=== PATIENT | female | born 1995 | race Caucasian/White ===

== ENCOUNTER 2017-01-01 14:28 | Emergency (ER) | payer BC, MEDICAID, OTHER ==
[2017-01-01 14:49] VITALS: BP 127/115
--- NOTE | 2017-01-01 15:08 | EDM.PDOC ---
ED HPI GENERAL MEDICAL PROBLEM - General Chief Complaint: ENT Problem Stated Complaint: EAR AND THROAT PAIN Time Seen by Provider: 01/01/17 14:57 Source of Information: Reports: Patient History Limitations: Reports: No Limitations - History of Present Illness INITIAL COMMENTS - FREE TEXT/NARRATIVE: Patient is a 21-year-old female who presents to the ED with left-sided ear pain , sinus congestion, runny nose, mild sore throat with postnasal drip. Patient states this started approximately 2 days ago. Pain to the ear has been a sharp throbbing sensation with waxing and waning in intensity. She has taken ibuprofen with some improvement. She has a history of strep throat and notes current symptoms are mild in nature. 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 She denies any fever, chills, chest pain, abdominal pain, nausea/vomiting, diarrhea, rash, or any additional complaints. Patient was instructed to come to the ED to obtain a doctor's notes since she was out sick yesterday and today. 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 Musculoskeletal History: Reports: 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) Other Musculoskeletal History: 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 - Past Surgical History HEENT Surgical History: Reports: Oral Surgery, 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) Social & Family History - Family History Family Medical History: Noncontributory - Tobacco Use Smoking Status *Q: Never Smoker Second Hand Smoke Exposure: No - Caffeine Use Caffeine Use: Reports: None - Alcohol Use Days Per Week of Alcohol Use: 0 - Recreational Drug Use Recreational Drug Use: No ED ROS GENERAL - Review of Systems Review Of Systems: ROS reveals no pertinent complaints other than HPI. ED EXAM, GENERAL - Physical Exam Exam: See Below Exam Limited By: No Limitations General Appearance: Alert, WD/WN, No Apparent Distress Eye Exam: Bilateral Eye: PERRL Ears: Normal External Exam, Normal Canal, Hearing Grossly Normal, Normal TMs Nose: Normal Inspection, Normal Mucosa, No Blood Throat/Mouth: Normal Inspection, Normal Oropharynx, Normal Voice, No Airway Compromise Head: Atraumatic, Normocephalic Neck: Normal Inspection, Supple, Non-Tender, Full Range of Motion. No: Lymphadenopathy (L), Lymphadenopathy (R) Respiratory/Chest: No Respiratory Distress, Lungs Clear, Normal Breath Sounds, No Accessory Muscle Use, Chest Non-Tender Cardiovascular: Normal Peripheral Pulses, Regular Rate, Rhythm, No Murmur Peripheral Pulses: 2+: Radial (R) Neurological: Alert, Oriented, CN II-XII Intact, Normal Cognition, No Motor/ Sensory Deficits Psychiatric: Normal Affect, Normal Mood Skin Exam: Warm, Dry, Intact, Normal Color, No Rash Course - Vital Signs Last Recorded V/S: Last Vital Signs Temp 98.1 F 01/01/17 14:47 Pulse 70 01/01/17 14:47 Resp 20 01/01/17 14:47 BP 127/115 H 01/01/17 14:47 Pulse Ox 98 01/01/17 14:47 - Re-Assessments/Exams Free Text/Narrative Re-Assessment/Exam: History and physical findings consistent for viral infection. We'll discharge patient home with instructions and a doctor's note. Departure - Departure Time of Disposition: 15:12 Disposition: Home, Self-Care 01 Condition: good Clinical Impression: Viral upper respiratory infection Instructions: Upper Respiratory Infection, Adult, [id number] Referrals: PCP,None [Primary Care Provider] - Forms: ED Department Discharge, Return to Work/School Form Additional Instructions: As discussed symptoms consistent for viral upper respiratory infection. Take tylenol and ibuprofen in alternating fashion for pain. Utilize flonase 1 spray to each nare every a.m. and claritan 1 tab 24ER everyday. Continue to push the fluids. Ensure adequate rest. See PCP as needed for reevaluation. Return to the E.D. for any new or worsening symptoms.
== END 2017-01-01 15:30 | disposition home or self-care (01) ==
LOC: JD.ED 14:28
DX: J06.9 Acute upper respiratory infection, unspecified (principal); B97.89 Other viral agents as the cause of diseases classified elsewhere; Z89.021 Acquired absence of right finger(s); Z91.010 Allergy to peanuts
CPT/HCPCS: 99282; 99283

== ENCOUNTER 2017-11-28 09:38 | Inpatient (IN) | payer MEDICAID ==
[2017-11-28] MEDS ORDERED: Sodium Chloride 0.9% 10 ML Syringe FLUSH PRN (10:02)
[2017-11-28] MEDS ORDERED: Nalbuphine 20 MG/ML 1 ML Syringe IVPUSH PRN (10:02)
[2017-11-28] MEDS ORDERED: Ampicillin 2 GM in Sodium Chloride 0.9% 100 ML IV ONE (10:02)
[2017-11-28] MEDS ORDERED: Ondansetron 4 MG/2 ML SDV IVPUSH PRN (10:02)
[2017-11-28] MEDS ORDERED: Oxytocin/Lactated Ringers 20 UNIT/1,000 ML BAG IV SCH (10:15)
[2017-11-28] MEDS ORDERED: Lactated Ringers 1,000 ML IV SCH (10:15)
[2017-11-28] MEDS ORDERED: diphenhydrAMINE 50 MG/ML SDV IVPUSH PRN (11:05)
[2017-11-28] MEDS ORDERED: ePHEDrine 50 MG/ML SDV IVPUSH PRN (11:05)
[2017-11-28] MEDS ORDERED: fentaNYL 100 MCG/2 ML SDV EPIDUR PRN (11:05)
[2017-11-28] MEDS ORDERED: Bupivacaine/fentaNYL/NS 100 ML Bag EPIDUR SCH (11:15)
--- NOTE | 2017-11-28 11:22 | PCM.LDHP ---
L&D History of Present Illness - General Date of Service: 11/28/17 Admit Problem/Dx: Patient Status Order with Admit Dx/Problem 11/28/17 10:02 Patient Status [ADT] Routine Admission Diagnosis/Problem Admission Diagnosis/Problem Normal labor Source of Information: Patient History Limitations: Reports: No Limitations - History of Present Illness Introduction:: 22-year-old 002 ÁNGEL 12/15/17 estimated gestational age 37 weeks 4 days presented to labor and delivery 5-6 cm dilated contractions every 3 minutes and moderate to strong bulging bag of barboza vertex presentation GBS positive in urine. Amniotomy performed at 11:15 on Monday11/28/17 clear fluid cervix at present time approximate 7-8 cm dilated. Cephalic presentation 0/-1 station. Category 1 heart rates before and after amniotomy. A positive, antibody screen negative, on 05/08/17 hemoglobin hematocrit 12.8/37.8. Platelets 190, 000. Rubella immune. Serology nonreactive. Group B strep grown only urine showed 7800 colony-forming units hepatitis B surface antigen negative, HIV negative, GC chlamydia probe negative. On 10/09/17 hemoglobin 11.0 hematocrit 33.7 platelets 199,00, 1 hour OB glucose screen 1:15 within normal limits. Plan delivery. Location, : Reports: Abdomen, Lower back Quality: Reports: Ache, Dull, Pressure Severity: Moderate Pain Score: 7 Improves with: Reports: None Worsens with: Reports: None Associated Symptoms: Reports: N - Related Data Allergies/Adverse Reactions: Allergies Allergy/AdvReac Type Severity Reaction Status Date / Time peanut Allergy Stomach Verified 11/28/17 10:01 Ache Home Medications: Home Meds . 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 - Past Surgical History HEENT Surgical History: Reports: Oral Surgery, 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) Social & Family History - Family History Family Medical History: Noncontributory - Tobacco Use Smoking Status *Q: Never Smoker Second Hand Smoke Exposure: No - Caffeine Use Caffeine Use: Reports: None - Recreational Drug Use Recreational Drug Use: No H&P Review of Systems - Review of Systems: Review Of Systems: See Below General: Reports: No Symptoms HEENT: Reports: No Symptoms Pulmonary: Reports: No Symptoms Cardiovascular: Reports: No Symptoms Gastrointestinal: Reports: No Symptoms Genitourinary: Reports: No Symptoms Musculoskeletal: Reports: No Symptoms Skin: Reports: No Symptoms Psychiatric: Reports: No Symptoms Neurological: Reports: No Symptoms Hematologic/Lymphatic: Reports: No Symptoms Immunologic: Reports: No Symptoms L&D Exam - Exam Exam: See Below - Vital Signs Vital Signs: Last Vital Signs Temp 98.5 F 11/28/17 10:02 Pulse 67 11/28/17 11:01 Resp 16 11/28/17 10:02 BP 97/65 11/28/17 10:02 Pulse Ox Weight: 169 lb - OB Specific Fundal Height In cm: 37 Contraction Duration (sec): 60 Contraction Frequency (min): 3 Contraction Intensity: Moderate to Strong Movement: Active Heart Tones: Present Heart Tones per Min: 140 Heart Rate (FHR) Variability: Moderate (6-25 bmp) Presentation: Vertex - Albrecht Score Albrecht Score Cervix Position: Anterior Albrecht Score Consistency: Soft Albrecht Score Effacement: >80% Albrecht Score Dilation: > 5 cm Albrecht Score Infant's Station: -1 ,0 Albrecht Score Total: 12 - Exam General: Alert, Oriented HEENT: Conjunctiva Clear, Mucosa Moist & [place], PERRLA Neck: Supple, Trachea Midline Lungs: Clear to Auscultation, Normal Respiratory Effort Cardiovascular: Regular Rate, Regular Rhythm GI/Abdominal Exam: Normal Bowel Sounds, Soft, Non-Tender Genitourinary: Normal external exam, Normal bimanual exam, Normal speculum exam Extremities: Normal Inspection, Normal Range of Motion, Non-Tender, No Pedal Edema, Normal Capillary Refill Skin: Warm, Dry, Intact Neurological: Cranial Nerves Intact, Reflexes Equal Bilateral DTR: 2+: Patella (L), Patella (R) Psychiatric: Alert, Normal Affect, Normal Mood - Patient Data Lab Results Last 24 hrs: Laboratory Results - last 24 hr 11/28/17 Range/Units 11:01 WBC 10.27 H (3.98-10.04) K/mm3 RBC 3.90 L (3.98-5.22) M/mm3 Hgb 11.5 (11.2-15.7) gm/L Hct 35.1 (34.1-44.9) % MCV 90.0 (79.4-94.8) fl MCH 29.5 (25.6-32.2) pg MCHC 32.8 (32.2-35.5) g/dl RDW Std Deviation 46.3 (36.4-46.3) fL Plt Count 188 (182-369) K/mm3 MPV 11.4 (9.4-12.3) fl Neut % (Auto) 79.0 H (34.0-71.1) % Lymph % (Auto) 12.9 L (19.3-51.7) % [place] % (Auto) 7.1 (4.7-12.5) % Eos % (Auto) 0.7 (0.7-5.8) Baso % (Auto) 0.1 (0.1-1.2) % Neut # (Auto) 8.12 H (1.56-6.13) K/mm3 Lymph # (Auto) 1.32 (1.18-3.74) K/mm3 [place] # (Auto) 0.73 H (0.24-0.36) K/mm3 Eos # (Auto) 0.07 (0.04-0.36) K/mm3 Baso # (Auto) 0.01 (0.01-0.08) K/mm3 Result Diagrams: 11/28/17 11:01 - Problem List (1) 37 weeks gestation of SNOMED Code(s): 41627729 ICD Code: Z3A.37 - 37 WEEKS GESTATION OF Status: Acute Current Visit: Yes (2) GBS bacteriuria SNOMED Code(s): 96550415 ICD Code: R82.71 - BACTERIURIA Status: Acute Current Visit: Yes Problem List Initiated/Reviewed/Updated: No Orders Last 24hrs: Active Orders 24 hr Category Date Time Status Patient Status [ADT] Routine ADT 11/28/17 10:02 Active Activity as Tolerated [RC] PFP Care 11/28/17 10:02 Active Communication Order [RC] ASDIRECTED Care 11/28/17 10:02 Active Communication Order [RC] ASDIRECTED Care 11/28/17 11:05 Active Cooling Warming Measures [RC] ASDIRECTED Care 11/28/17 11:05 Active Heart Tones [RC] ASDIRECTED Care 11/28/17 10:02 Active Notify Provider [RC] ASDIRECTED Care 11/28/17 11:05 Active Notify Provider [RC] PFP Care 11/28/17 10:02 Active Notify Provider [RC] PRN Care 11/28/17 10:02 Active Oxygen Therapy [RC] ASDIRECTED Care 11/28/17 11:05 Active Peripheral IV Care [RC] . DIRECTED Care 11/28/17 10:02 Active Pulse Oximetry [RC] ASDIRECTED Care 11/28/17 11:05 Active Verify Patient Consent Obtain [RC] ASDIRECTED Care 11/28/17 11:05 Active Vital Signs [RC] PER UNIT ROUTINE Care 11/28/17 10:02 Active Vital Signs [RC] Q1H Care 11/28/17 11:05 Active Regular Diet [DIET] Diet 11/28/17 Lunch Active Ampicillin 1 gm Med 11/28/17 14:00 Active Sodium Chloride 0.9% [Normal Saline] 100 ml IV Q4H Bupivacaine/fentaNYL/NS [fentaNYL/Bupivacaine/NS 2 MCG- Med 11/28/17 11:15 Active 0.125% 100 ML] 100 ml EPIDUR ASDIRECTED Lactated Ringers [Ringers, Lactated] 1,000 ml Med 11/28/17 10:15 Active IV ASDIRECTED Lidocaine 1% [Xylocaine 1%] Med 11/28/17 13:00 Once 50 ml INJECT ONETIME ONE Nalbuphine [Nubain] Med 11/28/17 10:02 Active 10 mg IVPUSH Q2H PRN Ondansetron [Zofran] Med 11/28/17 10:02 Active 4 mg IVPUSH Q4H PRN Oxytocin/Lactated Ringers [Pitocin in LR 20 Units/1,000 Med 11/28/17 10:15 Active ML] 20 unit in 1,000 ml IV ASDIRECTED Sodium Chloride 0.9% [Saline Flush] Med 11/28/17 10:02 Active 10 ml FLUSH ASDIRECTED PRN diphenhydrAMINE [Benadryl] Med 11/28/17 11:05 Active 25 mg IVPUSH Q6H PRN ePHEDrine [ePHEDrine Sulfate] Med 11/28/17 11:05 Active 5 mg IVPUSH ASDIRECTED PRN fentaNYL [Sublimaze] Med 11/28/17 11:05 Active 100 mcg EPIDUR Q3H PRN Electronic Heart Tones Ext w TOCO [WOMSER] Oth 11/28/17 10:02 Ordered Routine Electronic Heart Tones Internal [WOMSER] Per Unit Oth 11/28/17 10:02 Ordered Routine Peripheral IV Insertion Adult [OM.PC] Routine Oth 11/28/17 10:02 Ordered Resuscitation Status Routine Resus Stat 11/28/17 10:02 Ordered Medication Orders Diphenhydramine HCl (Benadryl) 25 mg IVPUSH Q6H PRN PRN Reason: Itching Ephedrine Sulfate (Ephedrine Sulfate) 5 mg IVPUSH ASDIRECTED PRN PRN Reason: HYPOTENTSION Fentanyl (Sublimaze) 100 mcg EPIDUR Q3H PRN PRN Reason: PAIN Fentanyl/Bupivacaine HCl (Fentanyl/Bupivacaine/Ns 2 Mcg-0.125% 100 Ml) 100 ml EPIDUR ASDIRECTED CHANCE Ampicillin Sodium 1 gm/ Sodium (Chloride) 100 mls @ 200 mls/hr IV Q4H CHANCE Lactated Ringer's (Ringers, Lactated) 1,000 mls @ 100 mls/hr IV ASDIRECTED [facility]NACE Last Admin: 11/28/17 10:25 Dose: 100 mls/hr Oxytocin/Lactated Ringer's (Pitocin In Lr 20 Units/1,000 Ml) 20 unit in 1,000 mls @ 500 mls/hr IV ASDIRECTED [facility]; Protocol Lidocaine HCl (Xylocaine 1%) 50 ml INJECT ONETIME ONE Stop: 11/28/17 13:01 Nalbuphine HCl (Nubain) 10 mg IVPUSH Q2H PRN PRN Reason: Pain (moderate 4-6) Ondansetron HCl (Zofran) 4 mg IVPUSH Q4H PRN PRN Reason: Nausea/Vomiting Sodium Chloride (Saline Flush) 10 ml FLUSH ASDIRECTED PRN PRN Reason: Keep Vein Open Assessment/Plan Comment:: Plan delivery
--- NOTE | 2017-11-28 12:17 | PCM.DEL ---
L & D Note - General Info Date of Service: 11/28/17 Mother's Due Date: 12/15/17 - Delivery Note Labor: Spontaneous, Augmented by ARM Delivery Outcome: Livebirth (Male liveborn at 1203 hrs. on Monday11/28/17 30// 70 grams 6 pounds 15.8 ounces male liveborn under no anesthesia 100 over no episiotomy or laceration MEL was nuchal cord times one easily reduced over the head. Apgars 8/9) Delivery Method: Spontaneous Vaginal Delivery-Single Delivery Mode: Spontaneous Presentation: Left Occiput Anterior (MEL) Nuchal Cord: Present (Times one easily reduced over the head) Prep: Povidone-Iodine (Betadine Anesthesia Type: None Episiotomy Type: None Laceration: None Placenta: Intact, Spontaneous (Placenta delivered at 1206 hrs. on Monday end packed slightly off center insertion of the cord three-vessel cord membranes intact no missing cotyledons patient had signed release and placenta given to patient and to take home.) Cord: 3 Vessels Estimated Blood Loss: 250 Resuscitation Needed: No [place]: Suctioned, Bulb Syringe, Stimulated, Warmed, [place] Used, Warmer Used Provider: Gato Kwong Score 1 min: 8 - General Info Date of Service: 11/28/17 Functional Status: Reports: Pain Controlled - Review of Systems General: Reports: No Symptoms HEENT: Reports: No Symptoms Pulmonary: Reports: No Symptoms Cardiovascular: Reports: No Symptoms Gastrointestinal: Reports: No Symptoms Genitourinary: Reports: No Symptoms Musculoskeletal: Reports: No Symptoms Skin: Reports: No Symptoms Neurological: Reports: No Symptoms Psychiatric: Reports: No Symptoms - Patient Data Vitals - Most Recent: Last Vital Signs Temp 98.5 F 11/28/17 10:02 Pulse 67 11/28/17 11:01 Resp 16 11/28/17 10:02 BP 97/65 11/28/17 10:02 Pulse Ox Weight - Most Recent: 169 lb Lab Results Last 24 Hours: Laboratory Results - last 24 hr 11/28/17 Range/Units 11:01 WBC 10.27 H (3.98-10.04) K/mm3 RBC 3.90 L (3.98-5.22) M/mm3 Hgb 11.5 (11.2-15.7) gm/L Hct 35.1 (34.1-44.9) % MCV 90.0 (79.4-94.8) fl MCH 29.5 (25.6-32.2) pg MCHC 32.8 (32.2-35.5) g/dl RDW Std Deviation 46.3 (36.4-46.3) fL Plt Count 188 (182-369) K/mm3 MPV 11.4 (9.4-12.3) fl Neut % (Auto) 79.0 H (34.0-71.1) % Lymph % (Auto) 12.9 L (19.3-51.7) % [place] % (Auto) 7.1 (4.7-12.5) % Eos % (Auto) 0.7 (0.7-5.8) Baso % (Auto) 0.1 (0.1-1.2) % Neut # (Auto) 8.12 H (1.56-6.13) K/mm3 Lymph # (Auto) 1.32 (1.18-3.74) K/mm3 [place] # (Auto) 0.73 H (0.24-0.36) K/mm3 Eos # (Auto) 0.07 (0.04-0.36) K/mm3 Baso # (Auto) 0.01 (0.01-0.08) K/mm3 Med Orders - Current: Current Medications Diphenhydramine HCl (Benadryl) 25 mg IVPUSH Q6H PRN PRN Reason: Itching Ephedrine Sulfate (Ephedrine Sulfate) 5 mg IVPUSH ASDIRECTED PRN PRN Reason: HYPOTENTSION Fentanyl (Sublimaze) 100 mcg EPIDUR Q3H PRN PRN Reason: PAIN Fentanyl/Bupivacaine HCl (Fentanyl/Bupivacaine/Ns 2 Mcg-0.125% 100 Ml) 100 ml EPIDUR ASDIRECTED CHANCE Ampicillin Sodium 1 gm/ Sodium (Chloride) 100 mls @ 200 mls/hr IV Q4H CHANCE Lactated Ringer's (Ringers, Lactated) 1,000 mls @ 100 mls/hr IV ASDIRECTED CHANCE Last Admin: 11/28/17 10:25 Dose: 100 mls/hr Oxytocin/Lactated Ringer's (Pitocin In Lr 20 Units/1,000 Ml) 20 unit in 1,000 mls @ 500 mls/hr IV ASDIRECTED [facility]ANCE; Protocol Lidocaine HCl (Xylocaine 1%) 50 ml INJECT ONETIME ONE Stop: 11/28/17 13:01 Nalbuphine HCl (Nubain) 10 mg IVPUSH Q2H PRN PRN Reason: Pain (moderate 4-6) Ondansetron HCl (Zofran) 4 mg IVPUSH Q4H PRN PRN Reason: Nausea/Vomiting Sodium Chloride (Saline Flush) 10 ml FLUSH ASDIRECTED PRN PRN Reason: Keep Vein Open Discontinued Medications Ampicillin Sodium 2 gm/ Sodium (Chloride) 100 mls @ 200 mls/hr IV ONETIME ONE Stop: 11/28/17 10:31 Last Admin: 11/28/17 10:30 Dose: 200 mls/hr - Problem List & Annotations (1) 37 weeks gestation of SNOMED Code(s): 04441408 Code(s): Z3A.37 - 37 WEEKS GESTATION OF Status: Acute Current Visit: Yes (2) GBS bacteriuria SNOMED Code(s): 94805915 Code(s): R82.71 - BACTERIURIA Status: Acute Current Visit: Yes (3) Labor and delivery complicated by cord around neck without compression SNOMED Code(s): 673765771, 293712625 Code(s): O69.81X0 - LABOR AND DEL COMP BY CORD AROUND NECK, W/O COMPRSN, UNSP Status: Acute Current Visit: Yes (4) Encounter for full-term uncomplicated delivery SNOMED Code(s): 13404083, 823893104 Code(s): O80 - ENCOUNTER FOR FULL-TERM UNCOMPLICATED DELIVERY Status: Acute Current Visit: Yes - Problem List Review Problem List Initiated/Reviewed/Updated: No - My Orders Last 24 Hours: My Active Orders 11/28/17 10:02 Patient Status [ADT] Routine Activity as Tolerated [RC] PFP Communication Order [RC] ASDIRECTED Heart Tones [RC] ASDIRECTED Notify Provider [RC] PFP Notify Provider [RC] PRN Peripheral IV Care [RC] . DIRECTED Vital Signs [RC] PER UNIT ROUTINE Nalbuphine [Nubain] 10 mg IVPUSH Q2H PRN Ondansetron [Zofran] 4 mg IVPUSH Q4H PRN Sodium Chloride 0.9% [Saline Flush] 10 ml FLUSH ASDIRECTED PRN Electronic Heart Tones Ext w TOCO [WOMSER] Routine Electronic Heart Tones Internal [WOMSER] Per Unit Routine Peripheral IV Insertion Adult [OM.PC] Routine Resuscitation Status Routine 11/28/17 10:15 Lactated Ringers [Ringers, Lactated] 1,000 ml IV ASDIRECTED Oxytocin/Lactated Ringers [Pitocin in LR 20 Units/1,000 ML] 20 unit in 1,000 ml IV ASDIRECTED 11/28/17 13:00 Lidocaine 1% [Xylocaine 1%] 50 ml INJECT ONETIME ONE 11/28/17 14:00 Ampicillin 1 gm Sodium Chloride 0.9% [Normal Saline] 100 ml IV Q4H 11/28/17 Lunch Regular Diet [DIET] - Plan Plan:: Plan delivery
[2017-11-28] MEDS ORDERED: Lidocaine 1% 50 ML MDV INJECT ONE (13:00)
[2017-11-28] MEDS ORDERED: Witch Hazel Medicated Pads 100/Jar TOP PRN (13:10)
[2017-11-28] MEDS ORDERED: Acetaminophen 325 MG Tab PO PRN (13:10)
[2017-11-28] MEDS ORDERED: Lanolin 100% Cream 7 GM Tube TOP PRN (13:10)
[2017-11-28] MEDS ORDERED: Benzocaine/Menthol 20%-0.5% Spray 56 GM Canister TOP PRN (13:10)
[2017-11-28] MEDS ORDERED: Ampicillin 1 GM in Sodium Chloride 0.9% 100 ML IV SCH (14:00)
[2017-11-28] MEDS ORDERED: Oxytocin/Lactated Ringers 10 UNIT/1,000 ML BAG IV SCH (14:30)
[2017-11-29] MEDS: Ibuprofen 600 MG Tab PO PRN (00:28)
[2017-11-29] MEDS: Prenatal Multivitamin with Calcium/Folic Acid/Iron Tab PO SCH ×2 (02:04→22:28)
--- NOTE | 2017-11-29 08:00 | PCM.SN ---
- Free Text/Narrative Note: exam Afebrile, chest clear, uterus at umbilicus -1. No heavy vaginal bleeding. No leg cramping.
[2017-11-30] MEDS: Ibuprofen 600 MG Tab PO PRN (03:38)
[2017-11-30 04:04] VITALS: BP 115/72
--- NOTE | 2017-11-30 08:06 | PCM.DCSUM1 ---
Discharge Summary - Hospital Course Free Text/Narrative:: [facility] LIVE L/D Delivery Note Patient Name: MIAN ROY Date of : 89 Patient Status: Inpatient Attending Provider: Gato Kwong Date: 11/28/17 12:12 Initialization Date: 11/28/17 12:12 L & D Note - General Info Date of Service: 11/28/17 Mother's Due Date: 12/15/17 - Delivery Note Labor: Spontaneous, Augmented by ARM Delivery Outcome: Livebirth (Male liveborn at 1203 hrs. on Monday11/28/17 grams 6 pounds 15.8 ounces male liveborn under no anesthesia 100 over no episiotomy or laceration MEL was nuchal cord times one easily reduced over the head. Apgars 8/9) Infant Delivery Method: Spontaneous Vaginal Delivery-Single Delivery Mode: Spontaneous Presentation: Left Occiput Anterior (MEL) Nuchal Cord: Present (Times one easily reduced over the head) Prep: Povidone-Iodine (Betadine Anesthesia Type: None Episiotomy Type: None Laceration: None Placenta: Intact, Spontaneous (Placenta delivered at 1206 hrs. on Monday end packed slightly off center insertion of the cord three-vessel cord membranes intact no missing cotyledons patient had signed release and placenta given to patient and to take home.) Cord: 3 Vessels Estimated Blood Loss: 250 Resuscitation Needed: No : Suctioned, Bulb Syringe, Stimulated, Warmed, [place] Used, Warmer Used Provider: Gato Kwong Score 1 min: 8 - General Info Date of Service: 11/28/17 Functional Status: Reports: Pain Controlled - Review of Systems General: Reports: No Symptoms HEENT: Reports: No Symptoms Pulmonary: Reports: No Symptoms Cardiovascular: Reports: No Symptoms Gastrointestinal: Reports: No Symptoms Genitourinary: Reports: No Symptoms Musculoskeletal: Reports: No Symptoms Skin: Reports: No Symptoms Neurological: Reports: No Symptoms Psychiatric: Reports: No Symptoms - Patient Data Vitals - Most Recent: Last Vital Signs Temp 98.5 F 11/28/17 10:02 Pulse 67 05/08/18 11:01 Resp 16 11/28/17 10:02 BP 97/65 11/28/17 10:02 Pulse Ox Weight - Most Recent: 169 lb Lab Results Last 24 Hours: Laboratory Results - last 24 hr 11/28/17 Range/Units 11:01 WBC 10.27 H (3.98-10.04) K/mm3 RBC 3.90 L (3.98-5.22) M/mm3 Hgb 11.5 (11.2-15.7) gm/L Hct 35.1 (34.1-44.9) % MCV 90.0 (79.4-94.8) fl MCH 29.5 (25.6-32.2) pg MCHC 32.8 (32.2-35.5) g/dl RDW Std Deviation 46.3 (36.4-46.3) fL Plt Count 188 (182-369) K/mm3 MPV 11.4 (9.4-12.3) fl Neut % (Auto) 79.0 H (34.0-71.1) % Lymph % (Auto) 12.9 L (19.3-51.7) % [place] % (Auto) 7.1 (4.7-12.5) % Eos % (Auto) 0.7 (0.7-5.8) Baso % (Auto) 0.1 (0.1-1.2) % Neut # (Auto) 8.12 H (1.56-6.13) K/mm3 Lymph # (Auto) 1.32 (1.18-3.74) K/mm3 [place] # (Auto) 0.73 H (0.24-0.36) K/mm3 Eos # (Auto) 0.07 (0.04-0.36) K/mm3 Baso # (Auto) 0.01 (0.01-0.08) K/mm3 Med Orders - Current: Current Medications Diphenhydramine HCl (Benadryl) 25 mg IVPUSH Q6H PRN PRN Reason: Itching Ephedrine Sulfate (Ephedrine Sulfate) 5 mg IVPUSH ASDIRECTED PRN PRN Reason: HYPOTENTSION Fentanyl (Sublimaze) 100 mcg EPIDUR Q3H PRN PRN Reason: PAIN Fentanyl/Bupivacaine HCl (Fentanyl/Bupivacaine/Ns 2 Mcg-0.125% 100 Ml) 100 ml EPIDUR ASDIRECTED [facility] Ampicillin Sodium 1 gm/ Sodium (Chloride) 100 mls @ 200 mls/hr IV Q4H [facility] Lactated Ringer's (Ringers, Lactated) 1,000 mls @ 100 mls/hr IV ASDIRECTED CHANCE Last Admin: 11/28/17 10:25 Dose: 100 mls/hr Oxytocin/Lactated Ringer's (Pitocin In Lr 20 Units/1,000 Ml) 20 unit in 1,000 mls @ 500 mls/hr IV ASDIRECTED [facility]; Protocol Lidocaine HCl (Xylocaine 1%) 50 ml INJECT ONETIME ONE Stop: 11/28/17 13:01 Nalbuphine HCl (Nubain) 10 mg IVPUSH Q2H PRN PRN Reason: Pain (moderate 4-6) Ondansetron HCl (Zofran) 4 mg IVPUSH Q4H PRN PRN Reason: Nausea/Vomiting Sodium Chloride (Saline Flush) 10 ml FLUSH ASDIRECTED PRN PRN Reason: Keep Vein Open Discontinued Medications Ampicillin Sodium 2 gm/ Sodium (Chloride) 100 mls @ 200 mls/hr IV ONETIME ONE Stop: 11/28/17 10:31 Last Admin: 11/28/17 10:30 Dose: 200 mls/hr - Problem List & Annotations (1) 37 weeks gestation of SNOMED Code(s): 02937816 Code(s): Z3A.37 - 37 WEEKS GESTATION OF Status: Acute Current Visit: Yes (2) GBS bacteriuria SNOMED Code(s): 75125775 Code(s): R82.71 - BACTERIURIA Status: Acute Current Visit: Yes (3) Labor and delivery complicated by cord around neck without compression SNOMED Code(s): 421744046, 196387823 Code(s): O69.81X0 - LABOR AND DEL COMP BY CORD AROUND NECK, W/O COMPRSN, UNSP Status: Acute Current Visit: Yes (4) Encounter for full-term uncomplicated delivery SNOMED Code(s): 12249049, 046425038 Code(s): O80 - ENCOUNTER FOR FULL-TERM UNCOMPLICATED DELIVERY Status: Acute Current Visit: Yes - Problem List Review Problem List Initiated/Reviewed/Updated: No - My Orders Last 24 Hours: My Active Orders 11/28/17 10:02 Patient Status [ADT] Routine Activity as Tolerated [RC] PFP Communication Order [RC] ASDIRECTED Heart Tones [RC] ASDIRECTED Notify Provider [RC] PFP Notify Provider [RC] PRN Peripheral IV Care [RC] . DIRECTED Vital Signs [RC] PER UNIT ROUTINE Nalbuphine [Nubain] 10 mg IVPUSH Q2H PRN Ondansetron [Zofran] 4 mg IVPUSH Q4H PRN Sodium Chloride 0.9% [Saline Flush] 10 ml FLUSH ASDIRECTED PRN Electronic Heart Tones Ext w TOCO [WOMSER] Routine Electronic Heart Tones Internal [WOMSER] Per Unit Routine Peripheral IV Insertion Adult [OM.PC] Routine Resuscitation Status Routine 11/28/17 10:15 Lactated Ringers [Ringers, Lactated] 1,000 ml IV ASDIRECTED Oxytocin/Lactated Ringers [Pitocin in LR 20 Units/1,000 ML] 20 unit in 1,000 ml IV ASDIRECTED 11/28/17 13:00 Lidocaine 1% [Xylocaine 1%] 50 ml INJECT ONETIME ONE 11/28/17 14:00 Ampicillin 1 gm Sodium Chloride 0.9% [Normal Saline] 100 ml IV Q4H 11/28/17 Lunch Regular Diet [DIET] - Plan Plan:: Plan delivery HPI Initial Comments: [facility] LIVE L/D Delivery Note Patient Name: MIAN ROY Date of : 89 Patient Status: Inpatient Attending Provider: Gato Kwong Date: 11/28/17 12:12 Initialization Date: 11/28/17 12:12 L & D Note - General Info Date of Service: 11/28/17 Mother's Due Date: 12/15/17 - Delivery Note Labor: Spontaneous, Augmented by ARM Delivery Outcome: Livebirth (Male liveborn at 1203 hrs. on Monday11/28/17 30/1/ 70 grams 6 pounds 15.8 ounces male liveborn under no anesthesia 100 over no episiotomy or laceration MEL was nuchal cord times one easily reduced over the head. Apgars 8/9) Delivery Method: Spontaneous Vaginal Delivery-Single Delivery Mode: Spontaneous Presentation: Left Occiput Anterior (MEL) Nuchal Cord: Present (Times one easily reduced over the head) Prep: Povidone-Iodine (Betadine Anesthesia Type: None Episiotomy Type: None Laceration: None Placenta: Intact, Spontaneous (Placenta delivered at 1206 hrs. on Monday end packed slightly off center insertion of the cord three-vessel cord membranes intact no missing cotyledons patient had signed release and placenta given to patient and to take home.) Cord: 3 Vessels Estimated Blood Loss: 250 Resuscitation Needed: No [place]: Suctioned, Bulb Syringe, Stimulated, Warmed, [place] Used, Warmer Used Provider: Gato Kwong Score 1 min: 8 - General Info Date of Service: 11/28/17 Functional Status: Reports: Pain Controlled - Review of Systems General: Reports: No Symptoms HEENT: Reports: No Symptoms Pulmonary: Reports: No Symptoms Cardiovascular: Reports: No Symptoms Gastrointestinal: Reports: No Symptoms Genitourinary: Reports: No Symptoms Musculoskeletal: Reports: No Symptoms Skin: Reports: No Symptoms Neurological: Reports: No Symptoms Psychiatric: Reports: No Symptoms - Patient Data Vitals - Most Recent: Last Vital Signs Temp 98.5 F 11/28/17 10:02 Pulse 67 11/28/17 11:01 Resp 16 11/28/17 10:02 BP 97/65 11/28/17 10:02 Pulse Ox Weight - Most Recent: 169 lb Lab Results Last 24 Hours: Laboratory Results - last 24 hr 11/28/17 Range/Units 11:01 WBC 10.27 H (3.98-10.04) K/mm3 RBC 3.90 L (3.98-5.22) M/mm3 Hgb 11.5 (11.2-15.7) gm/L Hct 35.1 (34.1-44.9) % MCV 90.0 (79.4-94.8) fl MCH 29.5 (25.6-32.2) pg MCHC 32.8 (32.2-35.5) g/dl RDW Std Deviation 46.3 (36.4-46.3) fL Plt Count 188 (182-369) K/mm3 MPV 11.4 (9.4-12.3) fl Neut % (Auto) 79.0 H (34.0-71.1) % Lymph % (Auto) 12.9 L (19.3-51.7) % [place] % (Auto) 7.1 (4.7-12.5) % Eos % (Auto) 0.7 (0.7-5.8) Baso % (Auto) 0.1 (0.1-1.2) % Neut # (Auto) 8.12 H (1.56-6.13) K/mm3 Lymph # (Auto) 1.32 (1.18-3.74) K/mm3 [place] # (Auto) 0.73 H (0.24-0.36) K/mm3 Eos # (Auto) 0.07 (0.04-0.36) K/mm3 Baso # (Auto) 0.01 (0.01-0.08) K/mm3 Med Orders - Current: Current Medications Diphenhydramine HCl (Benadryl) 25 mg IVPUSH Q6H PRN PRN Reason: Itching Ephedrine Sulfate (Ephedrine Sulfate) 5 mg IVPUSH ASDIRECTED PRN PRN Reason: HYPOTENTSION Fentanyl (Sublimaze) 100 mcg EPIDUR Q3H PRN PRN Reason: PAIN Fentanyl/Bupivacaine HCl (Fentanyl/Bupivacaine/Ns 2 Mcg-0.125% 100 Ml) 100 ml EPIDUR ASDIRECTED [facility] Ampicillin Sodium 1 gm/ Sodium (Chloride) 100 mls @ 200 mls/hr IV Q4H [facility] Lactated Ringer's (Ringers, Lactated) 1,000 mls @ 100 mls/hr IV ASDIRECTED [facility] Last Admin: 11/28/17 10:25 Dose: 100 mls/hr Oxytocin/Lactated Ringer's (Pitocin In Lr 20 Units/1,000 Ml) 20 unit in 1,000 mls @ 500 mls/hr IV ASDIRECTED [facility]; Protocol Lidocaine HCl (Xylocaine 1%) 50 ml INJECT ONETIME ONE Stop: 11/28/17 13:01 Nalbuphine HCl (Nubain) 10 mg IVPUSH Q2H PRN PRN Reason: Pain (moderate 4-6) Ondansetron HCl (Zofran) 4 mg IVPUSH Q4H PRN PRN Reason: Nausea/Vomiting Sodium Chloride (Saline Flush) 10 ml FLUSH ASDIRECTED PRN PRN Reason: Keep Vein Open Discontinued Medications Ampicillin Sodium 2 gm/ Sodium (Chloride) 100 mls @ 200 mls/hr IV ONETIME ONE Stop: 11/28/17 10:31 Last Admin: 11/28/17 10:30 Dose: 200 mls/hr - Problem List & Annotations (1) 37 weeks gestation of SNOMED Code(s): 48380326 Code(s): Z3A.37 - 37 WEEKS GESTATION OF Status: Acute Current Visit: Yes (2) GBS bacteriuria SNOMED Code(s): 22935127 Code(s): R82.71 - BACTERIURIA Status: Acute Current Visit: Yes (3) Labor and delivery complicated by cord around neck without compression SNOMED Code(s): 476320553, 224894164 Code(s): O69.81X0 - LABOR AND DEL COMP BY CORD AROUND NECK, W/O COMPRSN, UNSP Status: Acute Current Visit: Yes (4) Encounter for full-term uncomplicated delivery SNOMED Code(s): 65547561, 018889534 Code(s): O80 - ENCOUNTER FOR FULL-TERM UNCOMPLICATED DELIVERY Status: Acute Current Visit: Yes - Problem List Review Problem List Initiated/Reviewed/Updated: No - My Orders Last 24 Hours: My Active Orders 11/28/17 10:02 Patient Status [ADT] Routine Activity as Tolerated [RC] PFP Communication Order [RC] ASDIRECTED Heart Tones [RC] ASDIRECTED Notify Provider [RC] PFP Notify Provider [RC] PRN Peripheral IV Care [RC] . DIRECTED Vital Signs [RC] PER UNIT ROUTINE Nalbuphine [Nubain] 10 mg IVPUSH Q2H PRN Ondansetron [Zofran] 4 mg IVPUSH Q4H PRN Sodium Chloride 0.9% [Saline Flush] 10 ml FLUSH ASDIRECTED PRN Electronic Heart Tones Ext w TOCO [WOMSER] Routine Electronic Heart Tones Internal [WOMSER] Per Unit Routine Peripheral IV Insertion Adult [OM.PC] Routine Resuscitation Status Routine 11/28/17 10:15 Lactated Ringers [Ringers, Lactated] 1,000 ml IV ASDIRECTED Oxytocin/Lactated Ringers [Pitocin in LR 20 Units/1,000 ML] 20 unit in 1,000 ml IV ASDIRECTED 11/28/17 13:00 Lidocaine 1% [Xylocaine 1%] 50 ml INJECT ONETIME ONE 11/28/17 14:00 Ampicillin 1 gm Sodium Chloride 0.9% [Normal Saline] 100 ml IV Q4H 11/28/17 Lunch Regular Diet [DIET] - Plan Plan:: Plan delivery Brief History: [facility] LIVE . L/D Delivery Note. [facility] Number: [id number]. Date of : Patient Status: Inpatient. Attending Provider: Gato Kwong Number: [id number]. Date: 11/28/17 12:12Initialization Date: 11/28/17 12:12. L & D Note. - General Info. Date of Service: 11/28/17. Mother's Due Date: 12/15/17. - Delivery Note. Labor: Spontaneous, Augmented by ARM. Delivery Outcome: Livebirth (Male liveborn at 1203 hrs. on Monday11/28/17 30/70 grams 6 pounds 15.8 ounces male liveborn under no anesthesia 100 over no episiotomy or laceration MEL was nuchal cord times one easily reduced over the head. Apgars 8/9). Infant Delivery Method: Spontaneous Vaginal Delivery-Single. Infant Delivery Mode: Spontaneous. Presentation: Left Occiput Anterior ( MEL). Nuchal Cord: Present (Times one easily reduced over the head). Prep: Povidone-Iodine (Betadine. Anesthesia Type: None. Episiotomy Type: None. Laceration: None. Placenta: Intact, Spontaneous (Placenta delivered at 1206 hrs. on Monday11/28/17 end packed slightly off center insertion of the cord three-vessel cord membranes intact no missing coty[place]ons patient had signed release and placenta given to patient and to take home.). Cord: 3 Vessels. Estimated Blood Loss: 250. Resuscitation Needed: No. [place]: Suctioned, Bulb Syringe, Stimulated, Warmed, [place] Used, Warmer Used. Provider: Gato Kwong. Score 1 min: 8. - General Info. Date of Service: 11/28/17. Functional Status: Reports: Pain Controlled. - Review of Systems. General: Reports: No Symptoms. HEENT: Reports: No Symptoms. Pulmonary: Reports: No Symptoms. Cardiovascular: Reports: No Symptoms. Gastrointestinal: Reports: No Symptoms. Genitourinary: Reports: No Symptoms. Musculoskeletal: Reports: No Symptoms. Skin: Reports: No Symptoms. Neurological: Reports: No Symptoms. Psychiatric: Reports: No Symptoms. - Patient Data. Vitals - Most Recent: Last Vital Signs. Temp 98.5 F 11/28/17 10:02. Pulse 67 11/28/17 11:01. Resp 16 11/28/17 10:02. BP 97/65 11/28/17 10:02. Pulse Ox. Weight - Most Recent: 169 lb. Lab Results Last 24 Hours: Laboratory Results - last 24 hr. 11/28/17Range/Units. 11:01. WBC 10.27 H ( 3.98-10.04) K/mm3. RBC 3.90 L (3.98-5.22) M/mm3. Hgb 11.5 (11.2-15.7) gm/ L. Hct 35.1 (34.1-44.9) %. MCV 90.0 (79.4-94.8) fl. MCH 29.5 (25.6-32.2) pg. MCHC 32.8 (32.2-35.5) g/dl. RDW Std Deviation 46.3 (36.4-46.3) fL. Plt Count 188 (182-369) K/mm3. MPV 11.4 (9.4-12.3) fl. Neut % (Auto) 79.0 H ( 34.0-71.1) %. Lymph % (Auto) 12.9 L (19.3-51.7) %. [place] % (Auto) 7.1 (4.7- 12.5) %. Eos % (Auto) 0.7 (0.7-5.8). Baso % (Auto) 0.1 (0.1-1.2) %. Neut # (Auto) 8.12 H (1.56-6.13) K/mm3. Lymph # (Auto) 1.32 (1.18-3.74) K/mm3. [place] # (Auto) 0.73 H (0.24-0.36) K/mm3. Eos # (Auto) 0.07 (0.04-0.36) K/mm3. Baso # (Auto) 0.01 (0.01-0.08) K/mm3. Med Orders - Current: Current Medications. Diphenhydramine HCl (Benadryl) 25 mg IVPUSH Q6H PRN. PRN Reason : Itching. Ephedrine Sulfate (Ephedrine Sulfate) 5 mg IVPUSH ASDIRECTED PRN. PRN Reason: HYPOTENTSION. Fentanyl (Sublimaze) 100 mcg EPIDUR Q3H PRN. PRN Reason: PAIN. Fentanyl/Bupivacaine HCl (Fentanyl/Bupivacaine/Ns 2 Mcg-0.125% 100 Ml) 100 ml EPIDUR ASDIRECTED [facility]. Ampicillin Sodium 1 gm/ Sodium (Chloride ) 100 mls @ 200 mls/hr IV Q4H [facility]. Lactated Ringer's (Ringers, Lactated) 1, 000 mls @ 100 mls/hr IV ASDIRECTED [facility]. Last Admin: 11/28/17 10:25 Dose: 100 mls/hr. Oxytocin/Lactated Ringer's (Pitocin In Lr 20 Units/1,000 Ml) 20 unit in 1,000 mls @ 500 mls/hr IV ASDIRECTED [facility]; Protocol. Lidocaine HCl ( Xylocaine 1%) 50 ml INJECT ONETIME ONE. Stop: 11/28/17 13:01. Nalbuphine HCl (Nubain) 10 mg IVPUSH Q2H PRN. PRN Reason: Pain (moderate 4-6). Ondansetron HCl (Zofran) 4 mg IVPUSH Q4H PRN. PRN Reason: Nausea/Vomiting. Sodium Chloride (Saline Flush) 10 ml FLUSH ASDIRECTED PRN. PRN Reason: Keep Vein Open. Discontinued Medications. Ampicillin Sodium 2 gm/ Sodium (Chloride) 100 mls @ 200 mls/hr IV ONETIME ONE. Stop: 11/28/17 10:31. Last Admin: 10:30 Dose: 200 mls/hr. - Problem List & Annotations. (1) 37 weeks gestation of . SNOMED Code(s): 65289979. Code(s): Z3A.37 - 37 WEEKS GESTATION OF Status: Acute Current Visit: Yes. (2) GBS bacteriuria. SNOMED Code(s): 61136894. Code(s): R82.71 - BACTERIURIA Status : Acute Current Visit: Yes. (3) Labor and delivery complicated by cord around neck without compression. SNOMED Code(s): 380426646, 119632595. Code(s) : O69.81X0 - LABOR AND DEL COMP BY CORD AROUND NECK, W/O COMPRSN, UNSP Status : Acute Current Visit: Yes. (4) Encounter for full-term uncomplicated delivery. SNOMED Code(s): 91648980, 521344013. Code(s): O80 - ENCOUNTER FOR FULL-TERM UNCOMPLICATED DELIVERY Status: Acute Current Visit: Yes. - Problem List Review. Problem List Initiated/Reviewed/Updated: No. - My Orders. Last 24 Hours: My Active Orders. 11/28/17 10:02. Patient Status [ADT ] Routine. Activity as Tolerated [RC] PFP. Communication Order [RC] ASDIRECTED. Heart Tones [RC] ASDIRECTED. Notify Provider [RC] PFP. Notify Provider [RC] PRN. Peripheral IV Care [RC] . DIRECTED. Vital Signs [ RC] PER UNIT ROUTINE. Nalbuphine [Nubain] 10 mg IVPUSH Q2H PRN. Ondansetron [Zofran] 4 mg IVPUSH Q4H PRN. Sodium Chloride 0.9% [Saline Flush] 10 ml FLUSH ASDIRECTED PRN. Electronic Heart Tones Ext w TOCO [WOMSER] Routine. Electronic Heart Tones Internal [WOMSER] Per Unit Routine. Peripheral IV Insertion Adult [OM.PC] Routine. Resuscitation Status Routine. 11/28/17 10:15. Lactated Ringers [Ringers, Lactated] 1,000 ml IV ASDIRECTED. Oxytocin/Lactated Ringers [Pitocin in LR 20 Units/1,000 ML] 20 unit in 1,000 ml IV ASDIRECTED. 11/28/17 13:00. Lidocaine 1% [Xylocaine 1%] 50 ml INJECT ONETIME ONE. 11/28/17 14:00. Ampicillin 1 gm Sodium Chloride 0.9% [Normal Saline] 100 ml IV Q4H. 11/28/17 Lunch. Regular Diet [DIET]. - Plan. Plan:: Plan delivery - Discharge Data Discharge Date: 11/30/17 Discharge Disposition: Home, Self-Care 01 Condition: Good - Discharge Diagnosis/Problem(s) (1) 37 weeks gestation of SNOMED Code(s): 08400288 ICD Code: Z3A.37 - 37 WEEKS GESTATION OF Status: Acute Current Visit: Yes (2) GBS bacteriuria SNOMED Code(s): 32021016 ICD Code: R82.71 - BACTERIURIA Status: Acute Current Visit: Yes (3) Labor and delivery complicated by cord around neck without compression SNOMED Code(s): 578889793, 496267399 ICD Code: O69.81X0 - LABOR AND DEL COMP BY CORD AROUND NECK, W/O COMPRSN, UNSP Status: Acute Current Visit: Yes Qualifiers: Fetus number: single or unspecified fetus Qualified Code(s): O69.81X0 - Labor and delivery complicated by cord around neck, without compression, not applicable or unspecified (4) Encounter for full-term uncomplicated delivery SNOMED Code(s): 57470482, 714373603 ICD Code: O80 - ENCOUNTER FOR FULL-TERM UNCOMPLICATED DELIVERY Status: Acute Current Visit: Yes - Patient Summary/Data Complications: None Consults: None Hospital Course: Uneventful - Patient Instructions Diet: Regular Diet as Tolerated Driving: Do Not Drive (48 hours) Showering/Bathing: May Shower Notify Provider of: Fever, Increased Pain, Swelling and Redness, Drainage, Nausea and/or Vomiting - Discharge Plan Home Medications: Home Meds PNV95/Ferrous Fumarate/FA [ Tablet] 1 each PO DAILY 11/28/17 [History] Acetaminophen [Tylenol] 650 mg PO Q4H PRN tablet 11/30/17 [Rx] Benzocaine/Menthol [Dermoplast Pain Relief [place]] 1 spray TOP ASDIRECTED PRN canister 11/30/17 [Rx] Ibuprofen [IJD: Ibuprofen] 600 mg PO Q4H PRN tablet 11/30/17 [Rx] Lanolin [Lansinoh HPA] 1 applic TOP ASDIRECTED PRN tube 11/30/17 [Rx] Witch Chasidy [Tucks] 1 pad TOP ASDIRECTED PRN pad 11/30/17 [Rx] Patient Handouts: Vaginal Delivery, Care After, With Inverted, Flat, or Very Large Nipples Referrals: Gato Kwong MD [Primary Care Provider] - (Make appointment for Monday ) - Discharge Summary/Plan Comment DC Time >30 min.: No - Patient Data Vitals - Most Recent: Last Vital Signs Temp 98.2 F 11/30/17 03:44 Pulse 62 11/30/17 03:44 Resp 15 11/30/17 03:44 BP 115/72 11/30/17 03:44 Pulse Ox 96 11/30/17 03:44 Weight - Most Recent: 169 lb I&O - Last 24 hours: Intake & Output 11/29/17 11/30/17 11/30/17 22:59 06:59 14:59 Intake Total 0 Balance 0 Med Orders - Current: Current Medications Acetaminophen (Tylenol) 650 mg PO Q4H PRN PRN Reason: mild pain or fever Last Admin: 11/29/17 10:22 Dose: 650 mg Benzocaine/Menthol (Dermoplast Pain Relief [place]) 0 gm TOP ASDIRECTED PRN PRN Reason: Perineal Comfort Measure Last Admin: 11/28/17 13:41 Dose: 56 gm Emollient Ointment (Lansinoh Hpa) 0 gm TOP ASDIRECTED PRN PRN Reason: Sore Nipples Last Admin: 11/29/17 10:23 Dose: 1 applic Oxytocin/Lactated Ringer's (Pitocin In Lr 10 Units/1,000 Ml) 10 unit in 1,000 mls @ 3,000 mls/hr IV ASDIRECTED [facility]; Protocol Last Admin: 11/28/17 12:03 Dose: 500 munits/min, 3,000 mls/hr Ibuprofen (Motrin) 600 mg PO Q4H PRN PRN Reason: Mild pain or fever Last Admin: 11/30/17 03:38 Dose: 600 mg Prenat Multivit/[employer]/Iron/Folic Ac ( Plus Iron) 1 each PO DAILY@1999 [facility] Last Admin: 11/29/17 22:28 Dose: Not Given Witch Chasidy (Tucks) 1 pad TOP ASDIRECTED PRN PRN Reason: Hemorrhoid pain Last Admin: 11/28/17 13:42 Dose: 1 tub Discontinued Medications Diphenhydramine HCl (Benadryl) 25 mg IVPUSH Q6H PRN PRN Reason: Itching Ephedrine Sulfate (Ephedrine Sulfate) 5 mg IVPUSH ASDIRECTED PRN PRN Reason: HYPOTENTSION Fentanyl (Sublimaze) 100 mcg EPIDUR Q3H PRN PRN Reason: PAIN Fentanyl/Bupivacaine HCl (Fentanyl/Bupivacaine/Ns 2 Mcg-0.125% 100 Ml) 100 ml EPIDUR ASDIRECTED [facility] Ampicillin Sodium 2 gm/ Sodium (Chloride) 100 mls @ 200 mls/hr IV ONETIME ONE Stop: 11/28/17 10:31 Last Admin: 11/28/17 10:30 Dose: 200 mls/hr Ampicillin Sodium 1 gm/ Sodium (Chloride) 100 mls @ 200 mls/hr IV Q4H [facility] Lactated Ringer's (Ringers, Lactated) 1,000 mls @ 100 mls/hr IV ASDIRECTED [facility] Last Admin: 11/28/17 10:25 Dose: 100 mls/hr Oxytocin/Lactated Ringer's (Pitocin In Lr 20 Units/1,000 Ml) 20 unit in 1,000 mls @ 500 mls/hr IV ASDIRECTED [facility]; Protocol Lidocaine HCl (Xylocaine 1%) 50 ml INJECT ONETIME ONE Stop: 11/28/17 13:01 Nalbuphine HCl (Nubain) 10 mg IVPUSH Q2H PRN PRN Reason: Pain (moderate 4-6) Ondansetron HCl (Zofran) 4 mg IVPUSH Q4H PRN PRN Reason: Nausea/Vomiting Sodium Chloride (Saline Flush) 10 ml FLUSH ASDIRECTED PRN PRN Reason: Keep Vein Open
== END 2017-11-30 10:20 | disposition home or self-care (01) | DRG 775 ==
LOC: JD.OB 09:38 → JD.OBCHECK 09:38 → JD.OB 10:02 → JD.OBCHECK 10:02 → JD.OB 12:03 → OBSVTOIN 12:03
PROVIDERS: ADMIT Obstetrics & Gynecology; ATTEND Obstetrics & Gynecology
PROC: 10E0XZZ Delivery of Products of Conception, External Approach (ICD-10-PCS; principal; 2017-11-28)
PROC: 10907ZC Drainage of Amniotic Fluid, Therapeutic from Products of Conception, Via Natural or Artificial Opening (ICD-10-PCS; 2017-11-28)
DX: O99.824 Streptococcus B carrier state complicating childbirth (principal); O69.81X0 Labor and delivery complicated by cord around neck, without compression, not applicable or unspecified; Z3A.37 37 weeks gestation of pregnancy; Z37.0 Single live birth; Z91.010 Allergy to peanuts; Z89.021 Acquired absence of right finger(s)
CPT/HCPCS: 36415; 59025; 59409; 85025; A9270-GY; J0290; J2590; J7030; J7120

== ENCOUNTER 2020-02-08 09:57 | Inpatient (IN) | payer MEDICAID ==
[~2020-02-08 09:57] MED LIST: Bupivacaine 0.25% 10 ML SDV ONE
--- NOTE | 2020-02-08 10:16 | PCM.SN.2 ---
- Free Text/Narrative Note: 24 y/o ÁNGEL 02/24/2022 EGA 37w5d presented to L&D c/o contractions q3min. at 1010 cervix 4cm, 50%, soft, posterior, vertex -2. Will recheck later, observe for now.
--- NOTE | 2020-02-08 11:09 | PCM.SN.2 ---
- Free Text/Narrative Note: Cervix 5 cm dilated 50% effaced cephalic presentation 0 station membranes intact contractions are stronger. Bloody show. Category 1 heart rate. Recheck after 1 or 2 hours.
[2020-02-08] MEDS ORDERED: Lidocaine 1% 50 ML MDV INJECT ONE (11:20)
[2020-02-08] MEDS ORDERED: Nalbuphine 10 MG/ML Syringe IVPUSH PRN (11:20)
[2020-02-08] MEDS ORDERED: Sodium Chloride 0.9% 10 ML Syringe FLUSH PRN (11:20)
[2020-02-08] MEDS ORDERED: Oxytocin/Lactated Ringers 10 UNIT/1,000 ML BAG IV SCH ×2 (11:30→16:30)
[2020-02-08] MEDS ORDERED: Oxytocin/Lactated Ringers 20 UNIT/1,000 ML BAG IV SCH (11:30)
[2020-02-08] MEDS ORDERED: diphenhydrAMINE 50 MG/ML SDV IVPUSH PRN (12:24)
[2020-02-08] MEDS ORDERED: Bupivacaine/fentaNYL/NS 100 ML Bag EPIDUR PRN (12:24)
[2020-02-08] MEDS ORDERED: ePHEDrine 50 MG/ML SDV IVPUSH PRN (12:24)
[2020-02-08] MEDS ORDERED: fentaNYL 100 MCG/2 ML SDV EPIDUR PRN (12:24)
[2020-02-08] MEDS: Lactated Ringers 1,000 ML IV SCH ×2 (13:00→15:10)
--- NOTE | 2020-02-08 13:34 | PCM.PREANE ---
Preanesthetic Assessment - Procedure Proposed Procedure: Epidural - Anesthesia/Transfusion/Family Hx Anesthesia History: Prior Anesthesia Without Reaction Family History of Anesthesia Reaction: No Transfusion History: No Prior Transfusion(s) - Review of Systems General: Fatigue Pulmonary: No Symptoms Cardiovascular: No Symptoms Gastrointestinal: Abdominal Pain (labor) Neurological: No Symptoms Other: Reports: None - Physical Assessment Vital Signs: Last Vital Signs Temp 36.9 C 02/08/20 10:33 Pulse 87 02/08/20 10:33 Resp 16 02/08/20 10:33 BP 117/69 02/08/20 10:33 Pulse Ox 96 02/08/20 10:33 Height: 1.65 m Weight: 183.9 kg ASA Class: 2 Mental Status: Alert & Oriented x3 Airway Class: Mallampati = 1 Dentition: Reports: Normal Dentition Thyro-Mental Finger Breadths: 3 Mouth Opening Finger Breadths: 3 ROM/Head Extension: Full Lungs: Clear to Auscultation, Normal Respiratory Effort Cardiovascular: Regular Rate, Regular Rhythm - Lab Values: Laboratory Last Values WBC 8.54 K/mm3 (3.98-10.04) 02/08/20 11:45 RBC 3.98 M/mm3 (3.98-5.22) 02/08/20 11:45 Hgb 11.7 gm/dl (11.2-15.7) 02/08/20 11:45 Hct 36.1 % (34.1-44.9) 02/08/20 11:45 MCV 90.7 fl (79.4-94.8) 02/08/20 11:45 MCH 29.4 pg (25.6-32.2) 02/08/20 11:45 MCHC 32.4 g/dl (32.2-35.5) 02/08/20 11:45 RDW Std Deviation 44.1 fL (36.4-46.3) 02/08/20 11:45 Plt Count 180 K/mm3 (182-369) L 02/08/20 11:45 MPV 11.3 fl (9.4-12.3) 02/08/20 11:45 Neut % (Auto) 75.8 % (34.0-71.1) H 02/08/20 11:45 Lymph % (Auto) 14.6 % (19.3-51.7) L 02/08/20 11:45 [place] % (Auto) 8.1 % (4.7-12.5) 02/08/20 11:45 Eos % (Auto) 0.9 (0.7-5.8) 02/08/20 11:45 Baso % (Auto) 0.2 % (0.1-1.2) 02/08/20 11:45 Neut # (Auto) 6.47 K/mm3 (1.56-6.13) H 02/08/20 11:45 Lymph # (Auto) 1.25 K/mm3 (1.18-3.74) 02/08/20 11:45 [place] # (Auto) 0.69 K/mm3 (0.24-0.36) H 02/08/20 11:45 Eos # (Auto) 0.08 K/mm3 (0.04-0.36) 02/08/20 11:45 Baso # (Auto) 0.02 K/mm3 (0.01-0.08) 02/08/20 11:45 COVID-19 (IRLANDA) Negative (NEGATIVE) 02/08/20 11:55 Blood Type A POSITIVE 02/08/20 11:45 - Allergies Allergies/Adverse Reactions: Allergies Allergy/AdvReac Type Severity Reaction Status Date / Time latex Allergy Burning Verified 02/08/20 13:22 peanut AdvReac Stomach Verified 02/04/20 09:37 Ache - Anesthesia Plan Pre-Op Medication Ordered: None - Acknowledgements Anesthesia Type Planned: Epidural Pt an Appropriate Candidate for the Planned Anesthesia: Yes Alternatives and Risks of Anesthesia Discussed w Pt/Guardian: Yes Pt/Guardian Understands and Agrees with Anesthesia Plan: Yes PreAnesthesia Questionnaire - Past Health History Medical/Surgical History: Denies Medical/Surgical History Gastrointestinal History: Reports: 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: , 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) Other OB/BYN History: 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 Musculoskeletal History: Reports: 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) Other Musculoskeletal History: 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125% 100 Ml) 100 ml EPIDUR ASDIRECTED PRN PRN Reason: Pain Last Admin: 02/08/20 13:16 Dose: 100 ml Documented by: Lactated Ringer's (Ringers, Lactated) 1,000 mls @ 100 mls/hr IV ASDIRECTED CHANCE Last Infusion: 02/08/20 13:00 Dose: 999 mls/hr Documented by: Oxytocin/Lactated Ringer's (Pitocin In Lr 10 Units/1,000 Ml) 10 unit in 1,000 mls @ 500 mls/hr IV .CONTINUOUS CHANCE Oxytocin/Lactated Ringer's (Pitocin In Lr 20 Units/1,000 Ml) 20 unit in 1,000 mls @ 100 mls/hr IV .CONTINUOUS CHANCE Nalbuphine HCl (Nubain) 10 mg IVPUSH Q2H PRN PRN Reason: Pain Sodium Chloride (Saline Flush) 10 ml FLUSH ASDIRECTED PRN PRN Reason: Keep Vein Open Discontinued Medications Lidocaine HCl (Xylocaine 1%) 50 ml INJECT ONETIME ONE Stop: 02/08/20 11:21
--- NOTE | 2020-02-08 13:50 | PCM.SN.2 ---
- Free Text/Narrative Note: Amniotomy 1347 clear fluid, cervix 6 cm, 80%, soft, mid-position, vertex !Cat I FHR
--- NOTE | 2020-02-08 14:18 | PCM.LDHP ---
<Rosemarie Cid - Last Filed: 02/08/20 13:54> L&D History of Present Illness - General Date of Service: 02/08/20 Admit Problem/Dx: Patient Status Order with Admit Dx/Problem 02/08/20 11:20 Patient Status [ADT] Routine Admission Diagnosis/Problem Admission Diagnosis/Problem Source of Information: Patient History Limitations: Reports: No Limitations - History of Present Illness Introduction:: Sienna Sweet is a 24-year-old white female at 37 weeks and 4 days gestational age who presents to labor and delivery for decreased movement, as well as contractions that have been occurring over the last week. ÁNGEL is 02/24/2020. She is allergic to latex. Timing/Duration: Reports: minutes: (Contractions every 5-10 mins) Location, : Reports: Abdomen, Pelvic Severity: Moderate Pain Score: 5 Present Illness Comments:: Sienna Sweet is a 24-year-old white female at 37 weeks and 4 days gestational age who presents to labor and delivery for decreased movement, as well as contractions that have been occurring over the last week. ÁNGEL is 02/24/2020. heart tones and contraction patterns were assessed, and the patient was found to be 5 cm dilated. heart tones were and are appropriate. The decis ion to move forward with labor and delivery was made by the patient and her fiance after discussion with Dr. Kwong. OBGYN History: 24-year-old at 37 weeks and 4 days gestational age. ÁNGEL 02/24/2020, LMP 05/14/2019, which was confirmed by ultrasound performed on 08/22/2019. Menarche at age 11, cycles every 28 days and regular. History of chlamydia prior to this , which was treated appropriately. First trimester labs did show a negative chlamydia screening. 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 The patient ultimately decided on 09/16/2019 not to proceed with biopsies. However, she will be following up with Dr. Kwong after delivery to discuss possible colposcopy with biopsies and ECC. She was not on control at the time of conception. Past OBGYN History: 1. Female born on 03/01/2015 at [place], [place]) via at 41 weeks gestational age. weight was 8 lbs 3 oz. Length of labor was 8 hours and she did have an epidural. 2. Male born on 10/15/2017 at [facility] ([place], [place]) via at 39 weeks gestational age. weight was 6 lbs 12 oz. Length of labor was 4 hours and she did have an epidural. 3. Male born on 11/28/2019 at [facility] ([place], [place]) via at 37 weeks gestational age. weight was 7 lbs 0 oz. Length of labor was 2 hours and she did not have an epidural. Course: Initial visit was on 08/22/2019. Initial weight was 163 lbs; most recent weight was 183 lbs, for a total weight gain during of 20 pounds . Vital signs remained stable throughout . Fundal height growths were appropriate. She is due for a TDAP vaccine; this was discussed with her and her fiance several times throughout the course, as well as risks and benefits of receiving the vaccine, but she ultimately refused. She is planning to breastfeed. She is planning to have an epidural. Group B strep negative. Rubella immune. RPR nonreactive. Hepatitis B surface antigen and HIV negative. Chlamydia and gonorrhea negative. 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, severe dysplasia, CIS) Other OB/BYN History: 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 Musculoskeletal History: Reports: 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) (Hx finger amputation) Other Musculoskeletal History: 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 - Past Surgical History HEENT Surgical History: Reports: Oral Surgery, 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) (Finger amputation) Social & Family History - Family History Family Medical History: Noncontributory - Tobacco Use Smoking Status *Q: Never Smoker Second Hand Smoke Exposure: No - Caffeine Use Caffeine Use: Reports: None - Alcohol Use Alcohol Use History: No - Recreational Drug Use Recreational Drug Use: No H&P Review of Systems - Review of Systems: Review Of Systems: See Below General: Reports: No Symptoms HEENT: Reports: No Symptoms Pulmonary: Reports: No Symptoms Cardiovascular: Reports: No Symptoms Gastrointestinal: Reports: No Symptoms Genitourinary: Reports: No Symptoms Musculoskeletal: Reports: No Symptoms Skin: Reports: No Symptoms Psychiatric: Reports: No Symptoms Neurological: Reports: No Symptoms Hematologic/Lymphatic: Reports: No Symptoms Immunologic: Reports: No Symptoms L&D Exam - Exam Exam: See Below - Vital Signs Vital Signs: Last Vital Signs Temp 98.4 F 02/08/20 10:33 Pulse 87 02/08/20 10:33 Resp 16 02/08/20 10:33 BP 117/69 02/08/20 10:33 Pulse Ox 96 02/08/20 10:33 Weight: 405 lb 6.881 oz - OB Specific Contraction Intensity: Mild to Moderate Movement: Active Heart Tones: Present - Albrecht Score Albrecht Score Cervix Position: Midposition Albrecht Score Consistency: Medium Albrecht Score Effacement: 51-70% Albrecht Score Dilation: > 5 cm Albrecht Score 's Station: +1, +2 Albrecht Score Total: 10 - Exam General: Alert, Oriented HEENT: Conjunctiva Clear, EOMI, Hearing Intact, Mucosa Moist & [place], Normal Nasal Septum, Posterior Pharynx Clear, Pupils Equal, Pupils Reactive Neck: Supple, Trachea Midline Lungs: Clear to Auscultation, Normal Respiratory Effort Cardiovascular: Regular Rate, Regular Rhythm, Normal S1, Normal S2 GI/Abdominal Exam: Normal Bowel Sounds Rectal Exam: Deferred Genitourinary: Normal external exam Back Exam: Normal Inspection, Full Range of Motion, Other (No CVA tenderness) Extremities: Normal Inspection, Normal Range of Motion, Non-Tender, No Pedal Edema, Normal Capillary Refill Skin: Warm, Dry, Intact Neurological: Cranial Nerves Intact, Reflexes Equal Bilateral DTR: 2+: Bicep (L), Bicep (R), Patella (L), Patella (R) Psychiatric: Alert, Normal Affect, Normal Mood - Patient Data Lab Results Last 24 hrs: Laboratory Results - last 24 hr 02/08/20 02/08/20 02/08/20 Range/Units 11:45 11:45 11:55 WBC 8.54 (3.98-10.04) K/mm3 RBC 3.98 (3.98-5.22) M/mm3 Hgb 11.7 (11.2-15.7) gm/dl Hct 36.1 (34.1-44.9) % MCV 90.7 (79.4-94.8) fl MCH 29.4 (25.6-32.2) pg MCHC 32.4 (32.2-35.5) g/dl RDW Std Deviation 44.1 (36.4-46.3) fL Plt Count 180 L (182-369) K/mm3 MPV 11.3 (9.4-12.3) fl Neut % (Auto) 75.8 H (34.0-71.1) % Lymph % (Auto) 14.6 L (19.3-51.7) % [place] % (Auto) 8.1 (4.7-12.5) % Eos % (Auto) 0.9 (0.7-5.8) Baso % (Auto) 0.2 (0.1-1.2) % Neut # (Auto) 6.47 H (1.56-6.13) K/mm3 Lymph # (Auto) 1.25 (1.18-3.74) K/mm3 [place] # (Auto) 0.69 H (0.24-0.36) K/mm3 Eos # (Auto) 0.08 (0.04-0.36) K/mm3 Baso # (Auto) 0.02 (0.01-0.08) K/mm3 COVID-19 (IRLANDA) Negative (NEGATIVE) Blood Type A POSITIVE Gel Antibody Screen Negative Result Diagrams: 02/08/20 11:45 Orders Last 24hrs: Active Orders 24 hr Category Date Time Status Patient Status [ADT] Routine ADT 02/08/20 11:20 Active Activity as Tolerated [RC] PFP Care 02/08/20 11:20 Active Communication Order [RC] ASDIRECTED Care 02/08/20 11:20 Active Communication Order [RC] ASDIRECTED Care 02/08/20 12:24 Active Cooling Warming Measures [RC] ASDIRECTED Care 02/08/20 12:24 Active Heart Tones [RC] ASDIRECTED Care 02/08/20 11:20 Active Notify Provider [RC] ASDIRECTED Care 02/08/20 12:24 Active Notify Provider [RC] ASDIRECTED Care 02/08/20 12:24 Active Notify Provider [RC] PFP Care 02/08/20 11:20 Active Notify Provider [RC] PRN Care 02/08/20 11:20 Active Oxygen Therapy [RC] ASDIRECTED Care 02/08/20 12:24 Active Peripheral IV Care [RC] . DIRECTED Care 02/08/20 11:20 Active Pulse Oximetry [RC] ASDIRECTED Care 02/08/20 12:24 Active Pump Management, Intrathecal [RC] ASDIRECTED Care 02/08/20 11:21 Active Vital Signs [RC] PER UNIT ROUTINE Care 02/08/20 10:33 Active Vital Signs [RC] PER UNIT ROUTINE Care 02/08/20 11:20 Active Vital Signs [RC] Q1H Care 02/08/20 12:24 Active Regular Diet [DIET] Diet 02/08/20 Lunch Active RAPID PLASMA REAGIN,RPR [CHEM] Routine Lab 02/08/20 11:45 Received Bupivacaine/fentaNYL/NS [fentaNYL/Bupivacaine/NS 2 MCG- Med 02/08/20 12:24 Active 0.125% 100 ML] 100 ml EPIDUR ASDIRECTED PRN Lactated Ringers [Ringers, Lactated] 1,000 ml Med 02/08/20 11:30 Active IV ASDIRECTED Nalbuphine [Nubain] Med 02/08/20 11:20 Active 10 mg IVPUSH Q2H PRN Oxytocin/Lactated Ringers [Pitocin in LR 10 Units/1,000 Med 02/08/20 11:30 Active ML] 10 unit in 1,000 ml IV .CONTINUOUS Oxytocin/Lactated Ringers [Pitocin in LR 20 Units/1,000 Med 02/08/20 11:30 Active ML] 20 unit in 1,000 ml IV .CONTINUOUS Sodium Chloride 0.9% [Saline Flush] Med 02/08/20 11:20 Active 10 ml FLUSH ASDIRECTED PRN diphenhydrAMINE [Benadryl] Med 02/08/20 12:24 Active 25 mg IVPUSH Q6H PRN ePHEDrine [ePHEDrine sulfate] Med 02/08/20 12:24 Active 5 mg IVPUSH ASDIRECTED PRN fentaNYL [Sublimaze] Med 02/08/20 12:24 Active 100 mcg EPIDUR Q3H PRN Electronic Heart Tones Ext w TOCO [WOMSER] Oth 02/08/20 11:20 Ordered Routine Electronic Heart Tones Internal [WOMSER] Per Unit Oth 02/08/20 11:20 O rdered Routine Peripheral IV Insertion Adult [OM.PC] Routine Oth 02/08/20 11:20 Ordered Resuscitation Status Routine Resus Stat 02/08/20 10:33 Ordered Medication Orders Diphenhydramine HCl (Benadryl) 25 mg IVPUSH Q6H PRN PRN Reason: pruritis Ephedrine Sulfate (Ephedrine Sulfate) 5 mg IVPUSH ASDIRECTED PRN PRN Reason: Hypotension Fentanyl (Sublimaze) 100 mcg EPIDUR Q3H PRN PRN Reason: Pain Last Admin: 02/08/20 13:16 Dose: 100 mcg Documented by: ROSE Fentanyl/Bupivacaine HCl (Fentanyl/Bupivacaine/Ns 2 Mcg-0.125% 100 Ml) 100 ml EPIDUR ASDIRECTED PRN PRN Reason: Pain Last Admin: 02/08/20 13:16 Dose: 100 ml Documented by: ROSE Lactated Ringer's (Ringers, Lactated) 1,000 mls @ 100 mls/hr IV ASDIRECTED CHANCE Last Infusion: 02/08/20 13:00 Dose: 999 mls/hr Documented by: Admin: 02/08/20 13:00 Dose: 100 mls/hr Documented by: ROSE Oxytocin/Lactated Ringer's (Pitocin In Lr 10 Units/1,000 Ml) 10 unit in 1,000 mls @ 500 mls/hr IV .CONTINUOUS CHANCE Oxytocin/Lactated Ringer's (Pitocin In Lr 20 Units/1,000 Ml) 20 unit in 1,000 mls @ 100 mls/hr IV .CONTINUOUS CHANCE Nalbuphine HCl (Nubain) 10 mg IVPUSH Q2H PRN PRN Reason: Pain Sodium Chloride (Saline Flush) 10 ml FLUSH ASDIRECTED PRN PRN Reason: Keep Vein Open Assessment/Plan Comment:: Sienna Sweet is a 24-year-old white female at 37 weeks and 4 days gestational age who presents to labor and delivery for decreased movement, as well as contractions that have been occurring over the last week. ÁNGEL is 02/24/2020. Assessment in L&D shows reassuring heart tones. She was 4 cm dilated in the clinic on 02/05/2020 and is now 6 cm dilated. The decision was made by the patient and her fiance, after discussion with Dr. Kwong, to proceed with labor. Artificial rupture of membranes is planned to occur this afternoon. Routine labor care. She plans to breastfeed. She plants to have an epidural. NICKY Gonzales 02/08/2020 1424 HRS <Gato Kwong - Last Filed: 02/08/20 16:18> L&D History of Present Illness - General Admit Problem/Dx: Patient Status Order with Admit Dx/Problem 02/08/20 11:20 Patient Status [ADT] Routine Admission Diagnosis/Problem Admission Diagnosis/Problem L&D Exam - Vital Signs Vital Signs: Last Vital Signs Temp 98.4 F 02/08/20 10:33 Pulse 87 02/08/20 10:33 Resp 16 02/08/20 10:33 BP 117/69 02/08/20 10:33 Pulse Ox 96 02/08/20 10:33 - Patient Data Lab Results Last 24 hrs: Laboratory Results - last 24 hr 02/08/20 02/08/20 02/08/20 Range/Units 11:45 11:45 11:55 WBC 8.54 (3.98-10.04) K/mm3 RBC 3.98 (3.98-5.22) M/mm3 Hgb 11.7 (11.2-15.7) gm/dl Hct 36.1 (34.1-44.9) % MCV 90.7 (79.4-94.8) fl MCH 29.4 (25.6-32.2) pg MCHC 32.4 (32.2-35.5) g/dl RDW Std Deviation 44.1 (36.4-46.3) fL Plt Count 180 L (182-369) K/mm3 MPV 11.3 (9.4-12.3) fl Neut % (Auto) 75.8 H (34.0-71.1) % Lymph % (Auto) 14.6 L (19.3-51.7) % [place] % (Auto) 8.1 (4.7-12.5) % Eos % (Auto) 0.9 (0.7-5.8) Baso % (Auto) 0.2 (0.1-1.2) % Neut # (Auto) 6.47 H (1.56-6.13) K/mm3 Lymph # (Auto) 1.25 (1.18-3.74) K/mm3 [place] # (Auto) 0.69 H (0.24-0.36) K/mm3 Eos # (Auto) 0.08 (0.04-0.36) K/mm3 Baso # (Auto) 0.02 (0.01-0.08) K/mm3 COVID-19 (IRLANDA) Negative (NEGATIVE) Blood Type A POSITIVE Gel Antibody Screen Negative Result Diagrams: 02/08/20 11:45 - Problem List (1) 37 weeks gestation of SNOMED Code(s): 60364752 ICD Code: Z3A.37 - 37 WEEKS GESTATION OF Status: Acute Current Visit: No Problem List Initiated/Reviewed/Updated: No Orders Last 24hrs: Active Orders 24 hr Category Date Time Status Patient Status [ADT] Routine ADT 02/08/20 11:20 Active Activity as Tolerated [RC] PFP Care 02/08/20 11:20 Active Communication Order [RC] ASDIRECTED Care 02/08/20 11:20 Active Communication Order [RC] ASDIRECTED Care 02/08/20 12:24 Active Cooling Warming Measures [RC] ASDIRECTED Care 02/08/20 12:24 Active Heart Tones [RC] ASDIRECTED Care 02/08/20 11:20 Active Notify Provider [RC] ASDIRECTED Care 02/08/20 12:24 Active Notify Provider [RC] ASDIRECTED Care 02/08/20 12:24 Active Notify Provider [RC] PFP Care 02/08/20 11:20 Active Notify Provider [RC] PRN Care 02/08/20 11:20 Active Oxygen Therapy [RC] ASDIRECTED Care 02/08/20 12:24 Active Peripheral IV Care [RC] . DIRECTED Care 02/08/20 11:20 Active Pulse Oximetry [RC] ASDIRECTED Care 02/08/20 12:24 Active Pump Management, Intrathecal [RC] ASDIRECTED Care 02/08/20 11:21 Active Urinary Catheter Assessment [RC] ASDIRECTED Care 02/08/20 11:20 Active Vital Signs [RC] PER UNIT ROUTINE Care 02/08/20 10:33 Active Vital Signs [RC] PER UNIT ROUTINE Care 02/08/20 11:20 Active Vital Signs [RC] Q1H Care 02/08/20 12:24 Active Regular Diet [DIET] Diet 02/08/20 Lunch Active RAPID PLASMA REAGIN,RPR [CHEM] Routine Lab 02/08/20 11:45 Received Bupivacaine/fentaNYL/NS [fentaNYL/Bupivacaine/NS 2 MCG- Med 02/08/20 12:24 Active 0.125% 100 ML] 100 ml EPIDUR ASDIRECTED PRN Lactated Ringers [Ringers, Lactated] 1,000 ml Med 02/08/20 11:30 Active IV ASDIRECTED Nalbuphine [Nubain] Med 02/08/20 11:20 Active 10 mg IVPUSH Q2H PRN Oxytocin/Lactated Ringers [Pitocin in LR 10 Units/1,000 Med 02/08/20 11:30 Active ML] 10 unit in 1,000 ml IV .CONTINUOUS Oxytocin/Lactated Ringers [Pitocin in LR 20 Units/1,000 Med 02/08/20 11:30 Active ML] 20 unit in 1,000 ml IV .CONTINUOUS Sodium Chloride 0.9% [Saline Flush] Med 02/08/20 11:20 Active 10 ml FLUSH ASDIRECTED PRN diphenhydrAMINE [Benadryl] Med 02/08/20 12:24 Active 25 mg IVPUSH Q6H PRN ePHEDrine [ePHEDrine sulfate] Med 02/08/20 12:24 Active 5 mg IVPUSH ASDIRECTED PRN fentaNYL [Sublimaze] Med 02/08/20 12:24 Active 100 mcg EPIDUR Q3H PRN Electronic Heart Tones Ext w TOCO [WOMSER] Oth 02/08/20 11:20 Ordered Routine Electronic Heart Tones Internal [WOMSER] Per Unit Oth 02/08/20 11:20 Ordered Routine Peripheral IV Insertion Adult [OM.PC] Routine Oth 02/08/20 11:20 Ordered Resuscitation Status Routine Resus Stat 02/08/20 10:33 Ordered Medication Orders Diphenhydramine HCl (Benadryl) 25 mg IVPUSH Q6H PRN PRN Reason: pruritis Ephedrine Sulfate (Ephedrine Sulfate) 5 mg IVPUSH ASDIRECTED PRN PRN Reason: Hypotension Fentanyl (Sublimaze) 100 mcg EPIDUR Q3H PRN PRN Reason: Pain Last Admin: 02/08/20 13:16 Dose: 100 mcg Documented by: ROSE Fentanyl/Bupivacaine HCl (Fentanyl/Bupivacaine/Ns 2 Mcg-0.125% 100 Ml) 100 ml EPIDUR ASDIRECTED PRN PRN Reason: Pain Last Admin: 02/08/20 13:16 Dose: 100 ml Documented by: ROSE Lactated Ringer's (Ringers, Lactated) 1,000 mls @ 100 mls/hr IV ASDIRECTED CHANCE Last Admin: 02/08/20 15:10 Dose: 100 mls/hr Documented by: Infusion: 02/08/20 14:00 Dose: 999 mls/hr Documented by: Infusion: 02/08/20 13:00 Dose: 999 mls/hr Documented by: Admin: 02/08/20 13:00 Dose: 100 mls/hr Documented by: ROSE Oxytocin/Lactated Ringer's (Pitocin In Lr 10 Units/1,000 Ml) 10 unit in 1,000 mls @ 500 mls/hr IV .CONTINUOUS CHANCE Oxytocin/Lactated Ringer's (Pitocin In Lr 20 Units/1,000 Ml) 20 unit in 1,000 mls @ 100 mls/hr IV .CONTINUOUS CHANCE Nalbuphine HCl (Nubain) 10 mg IVPUSH Q2H PRN PRN Reason: Pain Sodium Chloride (Saline Flush) 10 ml FLUSH ASDIRECTED PRN PRN Reason: Keep Vein Open Assessment/Plan Comment:: Patient seen and examined by me and discussed with patient.
--- NOTE | 2020-02-08 16:23 | PCM.SN.2 ---
- Free Text/Narrative Note: Cervix 6-7 cm with contraction, 90% effaced, soft, anterior, vertex +1.Cat I FHR.
--- NOTE | 2020-02-08 16:24 | PCM.SN.2 ---
- Free Text/Narrative Note: Will consider starting Pitocin as contractions have waned to q2-5min and more irregular.
--- NOTE | 2020-02-08 18:31 | PCM.DEL ---
L & D Note - General Info Date of Service: 02/08/20 Mother's Due Date: 02/24/20 - Delivery Note Labor: Spontaneous, Augmented by ARM, Augmented by Oxytocin Delivery Outcome: Livebirth (L liveborn 02/08/2020 at 1815 hrs. MARISOL. Apgars 8/9. Weight 2880 g / 6 pounds 5.6 ounces. Cord x1 reduced easily over the head) Infant Delivery Method: Spontaneous Vaginal Delivery-Single Delivery Mode: Spontaneous Presentation: Right Occiput Anterior (MARISOL) Nuchal Cord: Present (X1 easily reduced over the head) Prep: Povidone-Iodine (Betadine Anesthesia Type: Epidural Amniotic Fluid Description: Clear Episiotomy Type: None Laceration: None Placenta: Intact, Spontaneous (1817 hrs. on 02/08/2020Monday examined intact.) Cord: 3 Vessels Estimated Blood Loss: 250 Resuscitation Needed: No Rollins: Suctioned, Bulb Syringe, Stimulated, Warmed, [place] Used, Warmer Used Provider: Gato Kwong Score 1 min: 8 Score 5 min: 9 - General Info Date of Service: 02/08/20 Admission Dx/Problem (Free Text): Patient Status Order with Admit Dx/Problem 02/08/20 11:20 Patient Status [ADT] Routine Admission Diagnosis/Problem Admission Diagnosis/Problem Functional Status: Reports: Pain Controlled - Review of Systems General: Reports: No Symptoms HEENT: Reports: No Symptoms Pulmonary: Reports: No Symptoms Cardiovascular: Reports: No Symptoms Gastrointestinal: Reports: No Symptoms Genitourinary: Reports: No Symptoms Musculoskeletal: Reports: No Symptoms Skin: Reports: No Symptoms Neurological: Reports: No Symptoms Psychiatric: Reports: No Symptoms - Patient Data Vitals - Most Recent: Last Vital Signs Temp 98.4 F 02/08/20 10:33 Pulse 87 02/08/20 10:33 Resp 16 02/08/20 10:33 BP 117/69 02/08/20 10:33 Pulse Ox 96 02/08/20 10:33 Weight - Most Recent: 405 lb 6.881 oz Lab Results Last 24 Hours: Laboratory Results - last 24 hr 02/08/20 02/08/20 02/08/20 Range/Units 11:45 11:45 11:55 WBC 8.54 (3.98-10.04) K/mm3 RBC 3.98 (3.98-5.22) M/mm3 Hgb 11.7 (11.2-15.7) gm/dl Hct 36.1 (34.1-44.9) % MCV 90.7 (79.4-94.8) fl MCH 29.4 (25.6-32.2) pg MCHC 32.4 (32.2-35.5) g/dl RDW Std Deviation 44.1 (36.4-46.3) fL Plt Count 180 L (182-369) K/mm3 MPV 11.3 (9.4-12.3) fl Neut % (Auto) 75.8 H (34.0-71.1) % Lymph % (Auto) 14.6 L (19.3-51.7) % [place] % (Auto) 8.1 (4.7-12.5) % Eos % (Auto) 0.9 (0.7-5.8) Baso % (Auto) 0.2 (0.1-1.2) % Neut # (Auto) 6.47 H (1.56-6.13) K/mm3 Lymph # (Auto) 1.25 (1.18-3.74) K/mm3 [place] # (Auto) 0.69 H (0.24-0.36) K/mm3 Eos # (Auto) 0.08 (0.04-0.36) K/mm3 Baso # (Auto) 0.02 (0.01-0.08) K/mm3 COVID-19 (IRLANDA) Negative (NEGATIVE) Blood Type A POSITIVE Gel Antibody Screen Negative Med Orders - Current: Current Medications Diphenhydramine HCl (Benadryl) 25 mg IVPUSH Q6H PRN PRN Reason: pruritis Ephedrine Sulfate (Ephedrine Sulfate) 5 mg IVPUSH ASDIRECTED PRN PRN Reason: Hypotension Fentanyl (Sublimaze) 100 mcg EPIDUR Q3H PRN PRN Reason: Pain Last Admin: 02/08/20 13:16 Dose: 100 mcg Documented by: Fentanyl/Bupivacaine HCl (Fentanyl/Bupivacaine/Ns 2 Mcg-0.125% 100 Ml) 100 ml EPIDUR ASDIRECTED PRN PRN Reason: Pain Last Admin: 02/08/20 13:16 Dose: 100 ml Documented by: Lactated Ringer's (Ringers, Lactated) 1,000 mls @ 100 mls/hr IV ASDIRECTED CHANCE Last Admin: 02/08/20 15:10 Dose: 100 mls/hr Documented by: Oxytocin/Lactated Ringer's (Pitocin In Lr 10 Units/1,000 Ml) 10 unit in 1,000 mls @ 500 mls/hr IV .CONTINUOUS CHANCE Oxytocin/Lactated Ringer's (Pitocin In Lr 20 Units/1,000 Ml) 20 unit in 1,000 mls @ 100 mls/hr IV .CONTINUOUS CHANCE Oxytocin/Lactated Ringer's (Pitocin In Lr 10 Units/1,000 Ml) 10 unit in 1,000 mls @ 12 mls/hr IV TITRATE CHANCE; Protocol Last Titration: 02/08/20 17:57 Dose: 1 munits/min, 6 mls/hr Documented by: Nalbuphine HCl (Nubain) 10 mg IVPUSH Q2H PRN PRN Reason: Pain Sodium Chloride (Saline Flush) 10 ml FLUSH ASDIRECTED PRN PRN Reason: Keep Vein Open Discontinued Medications Lidocaine HCl (Xylocaine 1%) 50 ml INJECT ONETIME ONE Stop: 02/08/20 11:21 - Exam General: Alert, Oriented HEENT: Pupils Equal, Mucous Membr. Moist/[place] Lungs: Clear to Auscultation, Normal Respiratory Effort Cardiovascular: Regular Rate, Regular Rhythm GI/Abdominal Exam: Normal Bowel Sounds (Female) Exam: Normal External Exam Extremities: Normal Inspection, Non-Tender, No Pedal Edema, Normal Capillary Refill Skin: Warm, Dry, Intact Psy/Mental Status: Alert, Normal Affect, Normal Mood - Problem List & Annotations (1) 37 weeks gestation of SNOMED Code(s): 87342908 Code(s): Z3A.37 - 37 WEEKS GESTATION OF Status: Acute Current Visit: No (2) Nuchal cord without compression, delivered, current hospitalization SNOMED Code(s): 40541529, 711573027 Code(s): O69.81X0 - LABOR AND DEL COMP BY CORD AROUND NECK, W/O COMPRSN, UNSP Status: Acute Current Visit: Yes (3) Normal delivery at term SNOMED Code(s): 95610192 Code(s): O80 - ENCOUNTER FOR FULL-TERM UNCOMPLICATED DELIVERY Status: Acute Current Visit: Yes - Problem List Review Problem List Initiated/Reviewed/Updated: No - My Orders Last 24 Hours: My Active Orders 02/08/20 10:33 Vital Signs [RC] PER UNIT ROUTINE Resuscitation Status Routine 02/08/20 Lunch Regular Diet [DIET] 02/08/20 11:20 Patient Status [ADT] Routine Activity as Tolerated [RC] PFP Communication Order [RC] ASDIRECTED Heart Tones [RC] ASDIRECTED Notify Provider [RC] PFP Notify Provider [RC] PRN Peripheral IV Care [RC] . DIRECTED Urinary Catheter Assessment [RC] ASDIRECTED Vital Signs [RC] PER UNIT ROUTINE Nalbuphine [Nubain] 10 mg IVPUSH Q2H PRN Sodium Chloride 0.9% [Saline Flush] 10 ml FLUSH ASDIRECTED PRN Electronic Heart Tones Ext w TOCO [WOMSER] Routine Electronic Heart Tones Internal [WOMSER] Per Unit Routine Peripheral IV Insertion Adult [OM.PC] Routine 02/08/20 11:21 Pump Management, Intrathecal [RC] ASDIRECTED 02/08/20 11:30 Lactated Ringers [Ringers, Lactated] 1,000 ml IV ASDIRECTED Oxytocin/Lactated Ringers [Pitocin in LR 10 Units/1,000 ML] 10 unit in 1,000 ml IV .CONTINUOUS Oxytocin/Lactated Ringers [Pitocin in LR 20 Units/1,000 ML] 20 unit in 1,000 ml IV .CONTINUOUS 02/08/20 11:45 RAPID PLASMA REAGIN,RPR [CHEM] Routine 02/08/20 16:30 Oxytocin/Lactated Ringers [Pitocin in LR 10 Units/1,000 ML] 10 unit in 1,000 ml IV TITRATE - Plan Plan:: Patient seen and examined by me and discussed with patient.
[2020-02-08] MEDS ORDERED: Benzocaine/Menthol 20%-0.5% Spray 56 GM Canister TOP PRN (20:46)
[2020-02-08] MEDS ORDERED: Docusate Sodium 100 MG Cap PO PRN (20:46)
[2020-02-08] MEDS ORDERED: Witch Hazel Medicated Pads 40/Jar TOP PRN (20:46)
[2020-02-08] MEDS ORDERED: Acetaminophen 325 MG Tab PO PRN (20:46)
[2020-02-09] MEDS: Ibuprofen 600 MG Tab PO PRN ×2 (02:32→22:00)
--- NOTE | 2020-02-09 08:42 | PCM48HPAN ---
Post Anesthesia Note - EVALUATION WITHIN 48HRS OF ANESTHETIC Vital Signs in Normal Range: Yes Patient Participated in Evaluation: Yes Respiratory Function Stable: Yes Airway Patent: Yes Cardiovascular Function Stable: Yes Hydration Status Stable: Yes Pain Control Satisfactory: Yes Nausea and Vomiting Control Satisfactory: Yes Mental Status Recovered: Yes Vital Signs: Last Vital Signs Temp 36.4 C 02/09/20 03:12 Pulse 63 02/09/20 03:12 Resp 16 02/09/20 03:12 BP 95/50 L 02/09/20 03:12 Pulse Ox 97 02/09/20 03:12 - COMMENTS/OBSERVATIONS Free Text/Narrative:: no anesthesia complications noted
--- NOTE | 2020-02-09 10:22 | PCM.SN.2 ---
- Free Text/Narrative Note: PPD#1 Afebrile, chest clear, no abnormal sounds,Heart normal, no abnormal sounds, abdomen soft, uterus at umbilicus, no heavy vaginal bleeding and no leg cramping.
[2020-02-10] MEDS: Ibuprofen 600 MG Tab PO PRN (02:57)
--- NOTE | 2020-02-10 10:44 | PCM.DCSUM1 ---
Discharge Summary - Hospital Course Free Text/Narrative:: [place] [facility] L/D Delivery Note Patient Name: MIAN BARTON Date of : 89 Patient Status: Inpatient Attending Provider: Gato Kwong Date: 02/08/20 18:24 Initialization Date: 02/08/20 18:24 L & D Note - General Info Date of Service: 02/08/20 Mother's Due Date: 02/24/20 - Delivery Note Labor: Spontaneous, Augmented by ARM, Augmented by Oxytocin Delivery Outcome: Livebirth (L liveborn 02/08/2020 at 1815 hrs. MARISOL. Apgars 8/9. Weight 2880 g / 6 pounds 5.6 ounces. Cord x1 reduced easily over the head) Delivery Method: Spontaneous Vaginal Delivery-Single Delivery Mode: Spontaneous Presentation: Right Occiput Anterior (MARISOL) Nuchal Cord: Present (X1 easily reduced over the head) Prep: Povidone-Iodine (Betadine Anesthesia Type: Epidural Amniotic Fluid Description: Clear Episiotomy Type: None Laceration: None Placenta: Intact, Spontaneous (1817 hrs. on 02/08/2020Monday examined intact.) Cord: 3 Vessels Estimated Blood Loss: 250 Resuscitation Needed: No : Suctioned, Bulb Syringe, Stimulated, Warmed, [place] Used, Warmer Used Provider: Gato Kwong Score 1 min: 8 Score 5 min: 9 - General Info Date of Service: 02/08/20 Admission Dx/Problem (Free Text): Patient Status Order with Admit Dx/Problem 02/08/20 11:20 Patient Status [ADT] Routine Admission Diagnosis/Problem Admission Diagnosis/Problem Functional Status: Reports: Pain Controlled - Review of Systems General: Reports: No Symptoms HEENT: Reports: No Symptoms Pulmonary: Reports: No Symptoms Cardiovascular: Reports: No Symptoms Gastrointestinal: Reports: No Symptoms Genitourinary: Reports: No Symptoms Musculoskeletal: Reports: No Symptoms Skin: Reports: No Symptoms Neurological: Reports: No Symptoms Psychiatric: Reports: No Symptoms - Patient Data Vitals - Most Recent: Last Vital Signs Temp 98.4 F 02/08/20 10:33 Pulse 87 07/18/20 10:33 Resp 16 02/08/20 10:33 BP 117/69 02/08/20 10:33 Pulse Ox 96 02/08/20 10:33 Weight - Most Recent: 405 lb 6.881 oz Lab Results Last 24 Hours: Laboratory Results - last 24 hr 02/08/20 02/08/20 02/08/20 Range/Units 11:45 11:45 11:55 WBC 8.54 (3.98-10.04) K/mm3 RBC 3.98 (3.98-5.22) M/mm3 Hgb 11.7 (11.2-15.7) gm/dl Hct 36.1 (34.1-44.9) % MCV 90.7 (79.4-94.8) fl MCH 29.4 (25.6-32.2) pg MCHC 32.4 (32.2-35.5) g/dl RDW Std Deviation 44.1 (36.4-46.3) fL Plt Count 180 L (182-369) K/mm3 MPV 11.3 (9.4-12.3) fl Neut % (Auto) 75.8 H (34.0-71.1) % Lymph % (Auto) 14.6 L (19.3-51.7) % [place] % (Auto) 8.1 (4.7-12.5) % Eos % (Auto) 0.9 (0.7-5.8) Baso % (Auto) 0.2 (0.1-1.2) % Neut # (Auto) 6.47 H (1.56-6.13) K/mm3 Lymph # (Auto) 1.25 (1.18-3.74) K/mm3 [place] # (Auto) 0.69 H (0.24-0.36) K/mm3 Eos # (Auto) 0.08 (0.04-0.36) K/mm3 Baso # (Auto) 0.02 (0.01-0.08) K/mm3 COVID-19 (IRLANDA) Negative (NEGATIVE) Blood Type A POSITIVE Gel Antibody Screen Negative Med Orders - Current: Current Medications Diphenhydramine HCl (Benadryl) 25 mg IVPUSH Q6H PRN PRN Reason: pruritis Ephedrine Sulfate (Ephedrine Sulfate) 5 mg IVPUSH ASDIRECTED PRN PRN Reason: Hypotension Fentanyl (Sublimaze) 100 mcg EPIDUR Q3H PRN PRN Reason: Pain Last Admin: 02/08/20 13:16 Dose: 100 mcg Documented by: Fentanyl/Bupivacaine HCl (Fentanyl/Bupivacaine/Ns 2 Mcg-0.125% 100 Ml) 100 ml EPIDUR ASDIRECTED PRN PRN Reason: Pain Last Admin: 02/08/20 13:16 Dose: 100 ml Documented by: Lactated Ringer's (Ringers, Lactated) 1,000 mls @ 100 mls/hr IV ASDIRECTED CHANCE Last Admin: 02/08/20 15:10 Dose: 100 mls/hr Documented by: Oxytocin/Lactated Ringer's (Pitocin In Lr 10 Units/1,000 Ml) 10 unit in 1,000 mls @ 500 mls/hr IV .CONTINUOUS CHANCE Oxytocin/Lactated Ringer's (Pitocin In Lr 20 Units/1,000 Ml) 20 unit in 1,000 mls @ 100 mls/hr IV .CONTINUOUS CHANCE Oxytocin/Lactated Ringer's (Pitocin In Lr 10 Units/1,000 Ml) 10 unit in 1,000 mls @ 12 mls/hr IV TITRATE CHANCE; Protocol Last Titration: 02/08/20 17:57 Dose: 1 munits/min, 6 mls/hr Documented by: Nalbuphine HCl (Nubain) 10 mg IVPUSH Q2H PRN PRN Reason: Pain Sodium Chloride (Saline Flush) 10 ml FLUSH ASDIRECTED PRN PRN Reason: Keep Vein Open Discontinued Medications Lidocaine HCl (Xylocaine 1%) 50 ml INJECT ONETIME ONE Stop: 02/08/20 11:21 - Exam General: Alert, Oriented HEENT: Pupils Equal, Mucous Membr. Moist/[place] Lungs: Clear to Auscultation, Normal Respiratory Effort Cardiovascular: Regular Rate, Regular Rhythm GI/Abdominal Exam: Normal Bowel Sounds (Female) Exam: Normal External Exam Extremities: Normal Inspection, Non-Tender, No Pedal Edema, Normal Capillary Refill Skin: Warm, Dry, Intact Psy/Mental Status: Alert, Normal Affect, Normal Mood - Problem List & Annotations (1) 37 weeks gestation of SNOMED Code(s): 76252013 Code(s): Z3A.37 - 37 WEEKS GESTATION OF Status: Acute Current Visit: No (2) Nuchal cord without compression, delivered, current hospitalization SNOMED Code(s): 76025278, 054042782 Code(s): O69.81X0 - LABOR AND DEL COMP BY CORD AROUND NECK, W/O COMPRSN, UNSP Status: Acute Current Visit: Yes (3) Normal delivery at term SNOMED Code(s): 32921717 Code(s): O80 - ENCOUNTER FOR FULL-TERM UNCOMPLICATED DELIVERY Status: Acute Current Visit: Yes - Problem List Review Problem List Initiated/Reviewed/Updated: No - My Orders Last 24 Hours: My Active Orders 02/08/20 10:33 Vital Signs [RC] PER UNIT ROUTINE Resuscitation Status Routine 02/08/20 Lunch Regular Diet [DIET] 02/08/20 11:20 Patient Status [ADT] Routine Activity as Tolerated [RC] PFP Communication Order [RC] ASDIRECTED Heart Tones [RC] ASDIRECTED Notify Provider [RC] PFP Notify Provider [RC] PRN Peripheral IV Care [RC] . DIRECTED Urinary Catheter Assessment [RC] ASDIRECTED Vital Signs [RC] PER UNIT ROUTINE Nalbuphine [Nubain] 10 mg IVPUSH Q2H PRN Sodium Chloride 0.9% [Saline Flush] 10 ml FLUSH ASDIRECTED PRN Electronic Heart Tones Ext w TOCO [WOMSER] Routine Electronic Heart Tones Internal [WOMSER] Per Unit Routine Peripheral IV Insertion Adult [OM.PC] Routine 02/08/20 11:21 Pump Management, Intrathecal [RC] ASDIRECTED 02/08/20 11:30 Lactated Ringers [Ringers, Lactated] 1,000 ml IV ASDIRECTED Oxytocin/Lactated Ringers [Pitocin in LR 10 Units/1,000 ML] 10 unit in 1,000 ml IV .CONTINUOUS Oxytocin/Lactated Ringers [Pitocin in LR 20 Units/1,000 ML] 20 unit in 1,000 ml IV .CONTINUOUS 02/08/20 11:45 RAPID PLASMA REAGIN,RPR [CHEM] Routine 02/08/20 16:30 Oxytocin/Lactated Ringers [Pitocin in LR 10 Units/1,000 ML] 10 unit in 1,000 ml IV TITRATE - Plan Plan:: Patient seen and examined by me and discussed with patient. HPI Initial Comments: [facility] L/D Delivery Note Patient Name: MIAN BARTON Date of : [birth year] Patient Status: Inpatient Attending Provider: Gato Kwong Date: 02/08/20 18:24 Initialization Date: 02/08/20 18:24 L & D Note - General Info Date of Service: 02/08/20 Mother's Due Date: 02/24/20 - Delivery Note Labor: Spontaneous, Augmented by ARM, Augmented by Oxytocin Delivery Outcome: Livebirth (L liveborn 02/08/2020 at 1815 hrs. MARISOL. Apgars 8/9. Weight 2880 g / 6 pounds 5.6 ounces. Cord x1 reduced easily over the head) Delivery Method: Spontaneous Vaginal Delivery-Single Delivery Mode: Spontaneous Presentation: Right Occiput Anterior (MARISOL) Nuchal Cord: Present (X1 easily reduced over the head) Prep: Povidone-Iodine (Betadine Anesthesia Type: Epidural Amniotic Fluid Description: Clear Episiotomy Type: None Laceration: None Placenta: Intact, Spontaneous (1817 hrs. on 02/08/2020Monday examined intact.) Cord: 3 Vessels Estimated Blood Loss: 250 Resuscitation Needed: No : Suctioned, Bulb Syringe, Stimulated, Warmed, [place] Used, Warmer Used Provider: Gato Kwong Score 1 min: 8 Score 5 min: 9 - General Info Date of Service: 02/08/20 Admission Dx/Problem (Free Text): Patient Status Order with Admit Dx/Problem 02/08/20 11:20 Patient Status [ADT] Routine Admission Diagnosis/Problem Admission Diagnosis/Problem Functional Status: Reports: Pain Controlled - Review of Systems General: Reports: No Symptoms HEENT: Reports: No Symptoms Pulmonary: Reports: No Symptoms Cardiovascular: Reports: No Symptoms Gastrointestinal: Reports: No Symptoms Genitourinary: Reports: No Symptoms Musculoskeletal: Reports: No Symptoms Skin: Reports: No Symptoms Neurological: Reports: No Symptoms Psychiatric: Reports: No Symptoms - Patient Data Vitals - Most Recent: Last Vital Signs Temp 98.4 F 02/08/20 10:33 Pulse 87 02/08/20 10:33 Resp 16 02/08/20 10:33 BP 117/69 02/08/20 10:33 Pulse Ox 96 02/08/20 10:33 Weight - Most Recent: 405 lb 6.881 oz Lab Results Last 24 Hours: Laboratory Results - last 24 hr 02/08/20 02/08/20 02/08/20 Range/Units 11:45 11:45 11:55 WBC 8.54 (3.98-10.04) K/mm3 RBC 3.98 (3.98-5.22) M/mm3 Hgb 11.7 (11.2-15.7) gm/dl Hct 36.1 (34.1-44.9) % MCV 90.7 (79.4-94.8) fl MCH 29.4 (25.6-32.2) pg MCHC 32.4 (32.2-35.5) g/dl RDW Std Deviation 44.1 (36.4-46.3) fL Plt Count 180 L (182-369) K/mm3 MPV 11.3 (9.4-12.3) fl Neut % (Auto) 75.8 H (34.0-71.1) % Lymph % (Auto) 14.6 L (19.3-51.7) % [place] % (Auto) 8.1 (4.7-12.5) % Eos % (Auto) 0.9 (0.7-5.8) Baso % (Auto) 0.2 (0.1-1.2) % Neut # (Auto) 6.47 H (1.56-6.13) K/mm3 Lymph # (Auto) 1.25 (1.18-3.74) K/mm3 [place] # (Auto) 0.69 H (0.24-0.36) K/mm3 Eos # (Auto) 0.08 (0.04-0.36) K/mm3 Baso # (Auto) 0.02 (0.01-0.08) K/mm3 COVID-19 (IRLANDA) Negative (NEGATIVE) Blood Type A POSITIVE Gel Antibody Screen Negative Med Orders - Current: Current Medications Diphenhydramine HCl (Benadryl) 25 mg IVPUSH Q6H PRN PRN Reason: pruritis Ephedrine Sulfate (Ephedrine Sulfate) 5 mg IVPUSH ASDIRECTED PRN PRN Reason: Hypotension Fentanyl (Sublimaze) 100 mcg EPIDUR Q3H PRN PRN Reason: Pain Last Admin: 02/08/20 13:16 Dose: 100 mcg Documented by: Fentanyl/Bupivacaine HCl (Fentanyl/Bupivacaine/Ns 2 Mcg-0.125% 100 Ml) 100 ml EPIDUR ASDIRECTED PRN PRN Reason: Pain Last Admin: 02/08/20 13:16 Dose: 100 ml Documented by: Lactated Ringer's (Ringers, Lactated) 1,000 mls @ 100 mls/hr IV ASDIRECTED CHANCE Last Admin: 02/08/20 15:10 Dose: 100 mls/hr Documented by: Oxytocin/Lactated Ringer's (Pitocin In Lr 10 Units/1,000 Ml) 10 unit in 1,000 mls @ 500 mls/hr IV .CONTINUOUS CHANCE Oxytocin/Lactated Ringer's (Pitocin In Lr 20 Units/1,000 Ml) 20 unit in 1,000 mls @ 100 mls/hr IV .CONTINUOUS CHANCE Oxytocin/Lactated Ringer's (Pitocin In Lr 10 Units/1,000 Ml) 10 unit in 1,000 mls @ 12 mls/hr IV TITRATE CHANCE; Protocol Last Titration: 02/08/20 17:57 Dose: 1 munits/min, 6 mls/hr Documented by: Nalbuphine HCl (Nubain) 10 mg IVPUSH Q2H PRN PRN Reason: Pain Sodium Chloride (Saline Flush) 10 ml FLUSH ASDIRECTED PRN PRN Reason: Keep Vein Open Discontinued Medications Lidocaine HCl (Xylocaine 1%) 50 ml INJECT ONETIME ONE Stop: 02/08/20 11:21 - Exam General: Alert, Oriented HEENT: Pupils Equal, Mucous Membr. Moist/[place] Lungs: Clear to Auscultation, Normal Respiratory Effort Cardiovascular: Regular Rate, Regular Rhythm GI/Abdominal Exam: Normal Bowel Sounds (Female) Exam: Normal External Exam Extremities: Normal Inspection, Non-Tender, No Pedal Edema, Normal Capillary Refill Skin: Warm, Dry, Intact Psy/Mental Status: Alert, Normal Affect, Normal Mood - Problem List & Annotations (1) 37 weeks gestation of SNOMED Code(s): 05377265 Code(s): Z3A.37 - 37 WEEKS GESTATION OF Status: Acute Current Visit: No (2) Nuchal cord without compression, delivered, current hospitalization SNOMED Code(s): 35168675, 120213168 Code(s): O69.81X0 - LABOR AND DEL COMP BY CORD AROUND NECK, W/O COMPRSN, UNSP Status: Acute Current Visit: Yes (3) Normal delivery at term SNOMED Code(s): 36686325 Code(s): O80 - ENCOUNTER FOR FULL-TERM UNCOMPLICATED DELIVERY Status: Acute Current Visit: Yes - Problem List Review Problem List Initiated/Reviewed/Updated: No - My Orders Last 24 Hours: My Active Orders 02/08/20 10:33 Vital Signs [RC] PER UNIT ROUTINE Resuscitation Status Routine 02/08/20 Lunch Regular Diet [DIET] 02/08/20 11:20 Patient Status [ADT] Routine Activity as Tolerated [RC] PFP Communication Order [RC] ASDIRECTED Heart Tones [RC] ASDIRECTED Notify Provider [RC] PFP Notify Provider [RC] PRN Peripheral IV Care [RC] . DIRECTED Urinary Catheter Assessment [RC] ASDIRECTED Vital Signs [RC] PER UNIT ROUTINE Nalbuphine [Nubain] 10 mg IVPUSH Q2H PRN Sodium Chloride 0.9% [Saline Flush] 10 ml FLUSH ASDIRECTED PRN Electronic Heart Tones Ext w TOCO [WOMSER] Routine Electronic Heart Tones Internal [WOMSER] Per Unit Routine Peripheral IV Insertion Adult [OM.PC] Routine 02/08/20 11:21 Pump Management, Intrathecal [RC] ASDIRECTED 02/08/20 11:30 Lactated Ringers [Ringers, Lactated] 1,000 ml IV ASDIRECTED Oxytocin/Lactated Ringers [Pitocin in LR 10 Units/1,000 ML] 10 unit in 1,000 ml IV .CONTINUOUS Oxytocin/Lactated Ringers [Pitocin in LR 20 Units/1,000 ML] 20 unit in 1,000 ml IV .CONTINUOUS 02/08/20 11:45 RAPID PLASMA REAGIN,RPR [CHEM] Routine 02/08/20 16:30 Oxytocin/Lactated Ringers [Pitocin in LR 10 Units/1,000 ML] 10 unit in 1,000 ml IV TITRATE - Plan Plan:: Patient seen and examined by me and discussed with patient. Brief History: [facility] . L/D Delivery Note. Patient Name: MIAN BARTON [facility] Record Number: [id number]. Date of : [birth year]Patient Status: Inpatient. Attending Provider: Gato Kwong Number: [id number]. Date: 02/08/20 18:24Initialization Date: 02/08/20 18:24. L & D Note. - General Info. Date of Service: 02/08/20. Mother's Due Date: 02/24/20. - Delivery Note. Labor: Spontaneous, Augmented by ARM, Augmented by Oxytocin. Delivery Outcome: Livebirth (L liveborn 02/08/2020 at 1815 hrs. MARISOL. Apgars 8/9. Weight 2880 g / 6 pounds 5.6 ounces. Cord x1 reduced easily over the head). Delivery Method: Spontaneous Vaginal Delivery- Single. Infant Delivery Mode: Spontaneous. Presentation: Right Occiput Anterior (MARISOL). Nuchal Cord: Present (X1 easily reduced over the head). Prep: Povidone-Iodine (Betadine. Anesthesia Type: Epidural. Amniotic Fluid Description: Clear. Episiotomy Type: None. Laceration: None. Placenta: Intact, Spontaneous (1817 hrs. on 02/08/2020Monday examined intact.). Cord: 3 Vessels. Estimated Blood Loss: 250. Resuscitation Needed: No. [place]: Suctioned, Bulb Syringe, Stimulated, Warmed, [place] Used, Warmer Used. Provider: Gato Kwong. Score 1 min: 8. Score 5 min: 9. - General Info. Date of Service: 02/08/20. Admission Dx/Problem (Free Text): Patient Status Order with Admit Dx/Problem. 02/08/20 11:20. Patient Status [ADT] Routine. Admission Diagnosis/Problem. Admission Diagnosis/Problem . Functional Status: Reports: Pain Controlled. - Review of Systems. General: Reports: No Symptoms. HEENT: Reports: No Symptoms. Pulmonary: Reports: No Symptoms. Cardiovascular: Reports: No Symptoms. Gastrointestinal: Reports: No Symptoms. Genitourinary: Reports: No Symptoms. Musculoskeletal: Reports: No Symptoms. Skin: Reports: No Symptoms. Neurological: Reports: No Symptoms. Psychiatric: Reports: No Symptoms. - Patient Data. Vitals - Most Recent: Last Vital Signs. Temp 98.4 F 02/08/20 10:33. Pulse 87 02/08/20 10:33. Resp 16 02/08/20 10:33. BP 117/69 02/08/20 10:33. Pulse Ox 96 02/08/20 10:33. Weight - Most Recent: 405 lb 6.881 oz. Lab Results Last 24 Hours: Laboratory Results - last 24 hr. 02/07/2007/Range/Units. 11:4511:4511:55. WBC 8.54 (3.98-10.04) K/mm3. RBC 3.98 (3.98-5.22) M/mm3. Hgb 11.7 (11.2-15.7) gm/dl. Hct 36.1 (34.1-44.9) %. MCV 90.7 (79.4-94.8) fl. MCH 29.4 (25.6-32.2) pg. MCHC 32.4 (32.2-35.5) g/dl. RDW Std Deviation 44.1 (36.4-46.3) fL. Plt Count 180 L (182-369) K/mm3. MPV 11.3 (9.4-12.3) fl. Neut % (Auto) 75.8 H (34.0-71.1) %. Lymph % (Auto) 14.6 L (19.3-51.7) %. [place] % (Auto) 8.1 (4.7-12.5) %. Eos % (Auto) 0.9 (0.7-5.8). Baso % (Auto) 0.2 (0.1-1.2) %. Neut # (Auto) 6.47 H (1.56-6.13) K/mm3. Lymph # (Auto) 1.25 (1.18-3.74) K/mm3. [place] # (Auto) 0.69 H (0.24-0.36) K/mm3. Eos # (Auto) 0.08 (0.04-0.36) K/mm3. Baso # (Auto) 0.02 (0.01-0.08) K/mm3. COVID-19 (IRLANDA) Negative (NEGATIVE). Blood Type A POSITIVE. Gel Antibody Screen Negative. Med Orders - Current: Current Medications. Diphenhydramine HCl (Benadryl) 25 mg IVPUSH Q6H PRN. PRN Reason: pruritis. Ephedrine Sulfate (Ephedrine Sulfate) 5 mg IVPUSH ASDIRECTED PRN. PRN Reason: Hypotension. Fentanyl (Sublimaze) 100 mcg EPIDUR Q3H PRN. PRN Reason: Pain. Last Admin: 02/08/20 13:16 Dose: 100 mcg. Documented by: Fentanyl/Bupivacaine HCl (Fentanyl/Bupivacaine/Ns 2 Mcg-0.125% 100 Ml) 100 ml EPIDUR ASDIRECTED PRN. PRN Reason: Pain. Last Admin: 02/08/20 13:16 Dose: 100 ml. Documented by: Lactated Ringer's (Ringers, Lactated) 1,000 mls @ 100 mls/hr IV ASDIRECTED CHANCE. Last Admin: 02/08/20 15:10 Dose: 100 mls/hr. Documented by: Oxytocin/Lactated Ringer's (Pitocin In Lr 10 Units/1,000 Ml) 10 unit in 1,000 mls @ 500 mls/hr IV .CONTINUOUS CHANCE. Oxytocin/Lactated Ringer's (Pitocin In Lr 20 Units/1,000 Ml) 20 unit in 1,000 mls @ 100 mls/hr IV .CONTINUOUS CHANCE. Oxytocin/Lactated Ringer's (Pitocin In Lr 10 Units/1,000 Ml) 10 unit in 1,000 mls @ 12 mls/hr IV TITRATE CHANCE; Protocol. Last Titration: 02/08/20 17:57 Dose: 1 munits/min, 6 mls/hr. Documented by: Nalbuphine HCl (Nubain) 10 mg IVPUSH Q2H PRN. PRN Reason: Pain. Sodium Chloride (Saline F lush) 10 ml FLUSH ASDIRECTED PRN. PRN Reason: Keep Vein Open. Discontinued Medications. Lidocaine HCl (Xylocaine 1%) 50 ml INJECT ONETIME ONE. Stop: 02/08/20 11:21. - Exam. General: Alert, Oriented. HEENT: Pupils Equal, Mucous Membr. Moist/[place]. Lungs: Clear to Auscultation, Normal Respiratory Effort. Cardiovascular: Regular Rate, Regular Rhythm. GI/Abdominal Exam: Normal Bowel Sounds. (Female) Exam: Normal External Exam. Extremities: Normal Inspection, Non-Tender, No Pedal Edema, Normal Capillary Refill. Skin: Warm, Dry, Intact. Psy/Mental Status: Alert, Normal Affect, Normal Mood. - Problem List & Annotations. (1) 37 weeks gestation of . SNOMED Code(s): 90335163. Code(s): Z3A.37 - 37 WEEKS GESTATION OF Status: Acute Current Visit: No. (2) Nuchal cord without compression, delivered, current hospitalization. SNOMED Code(s): 60198519, 096498922. Code(s): O69.81X0 - LABOR AND DEL COMP BY CORD AROUND NECK, W/O COMPRSN, UNSP Status: Acute Current Visit: Yes. (3) Normal delivery at term. SNOMED Code(s): 86931687. Code(s): O80 - ENCOUNTER FOR FULL-TERM UNCOMPLICATED DELIVERY Status: Acute Current Visit: Yes. - Problem List Review. Problem List Initiated/Reviewed/Updated: No. - My Orders. Last 24 Hours: My Active Orders. 02/08/20 10:33. Vital Signs [RC] PER UNIT ROUTINE. Resuscitation Status Routine. 02/08/20 Lunch. Regular Diet [DIET]. 02/08/20 11:20. Patient Status [ADT] Routine. Activity as Tolerated [RC] PFP. Communication Order [RC] ASDIRECTED. Heart Tones [RC] ASDIRECTED. Notify Provider [RC] PFP. Notify Provider [RC] PRN. Peripheral IV Care [RC] . DIRECTED. Urinary Catheter Assessment [RC] ASDIRECTED. Vital Signs [RC] PER UNIT ROUTINE. Nalbuphine [Nubain] 10 mg IVPUSH Q2H PRN. Sodium Chloride 0.9% [Saline Flush] 10 ml FLUSH ASDIRECTED PRN. Electronic Heart Tones Ext w TOCO [WOMSER] Routine. Electronic Heart Tones Internal [WOMSER] Per Unit Routine. Peripheral IV Insertion Adult [OM.PC] Routine. 02/08/20 11:21. Pump Management, Intrathecal [RC] ASDIRECTED. 02/08/20 11:30. Lactated Ringers [Ringers, Lactated] 1,000 ml IV ASDIRECTED. Oxytocin/Lactated Ringers [Pitocin in LR 10 Units/1,000 ML] 10 unit in 1,000 ml IV .CONTINUOUS. Oxytocin/Lactated Ringers [Pitocin in LR 20 Units/1,000 ML] 20 unit in 1,000 ml IV .CONTINUOUS. 02/08/20 11:45. RAPID PLASMA REAGIN,RPR [CHEM] Routine. 02/08/20 16:30. Oxytocin/Lactated Ringers [Pitocin in LR 10 Units/1,000 ML] 10 unit in 1,000 ml IV TITRATE. - Plan. Plan:: Patient seen and examined by me and discussed with patient. Diagnosis: Stroke: No - Discharge Data Discharge Date: 02/10/20 Discharge Disposition: Home, Self-Care 01 Condition: Good - Referral to Home Health Primary Care Physician: Geoff Slaughter MD - Discharge Diagnosis/Problem(s) (1) 37 weeks gestation of SNOMED Code(s): 68209373 ICD Code: Z3A.37 - 37 WEEKS GESTATION OF Status: Acute Current Visit: No (2) Nuchal cord without compression, delivered, current hospitalization SNOMED Code(s): 07324195, 574633486 ICD Code: O69.81X0 - LABOR AND DEL COMP BY CORD AROUND NECK, W/O COMPRSN, UNSP Status: Acute Current Visit: Yes (3) Normal delivery at term SNOMED Code(s): 95350488 ICD Code: O80 - ENCOUNTER FOR FULL-TERM UNCOMPLICATED DELIVERY Status: Acute Current Visit: Yes - Patient Summary/Data Complications: None Consults: None Hospital Course: Uneventful - Patient Instructions Diet: Usual Diet as Tolerated Driving: Do Not Drive (This 48 hours) Notify Provider of: Fever, Increased Pain, Swelling and Redness, Drainage, Nausea and/or Vomiting - Discharge Plan *PRESCRIPTION DRUG MONITORING PROGRAM REVIEWED*: Not Applicable *COPY OF PRESCRIPTION DRUG MONITORING REPORT IN PATIENT RAMSEY: Not Applicable Home Medications: Home Meds Acetaminophen [Tylenol] 650 mg PO Q6H PRN tablet 02/10/20 [Rx] Benzocaine/Menthol [Dermoplast Pain Relief [place]] 1 spray TOP ASDIRECTED PRN canister 02/10/20 [Rx] Docusate Sodium [Colace] 100 mg PO BID PRN cap 02/10/20 [Rx] Ibuprofen [Motrin] 600 mg PO Q6H PRN tablet 02/10/20 [Rx] [place] [Adelso] 1 pad TOP ASDIRECTED PRN pad 02/10/20 [Rx] Referrals: Gato Kwong MD [Physician] - (Will call to make appointment in 2 weeks ) - Discharge Summary/Plan Comment DC Time >30 min.: No - Patient Data Vitals - Most Recent: Last Vital Signs Temp 97.9 F 02/10/20 02:52 Pulse 67 02/10/20 02:52 Resp 15 02/10/20 02:52 BP 103/73 02/10/20 02:52 Pulse Ox 98 02/10/20 02:52 Weight - Most Recent: 405 lb 6.881 oz Med Orders - Current: Current Medications Acetaminophen (Tylenol) 650 mg PO Q4H PRN PRN Reason: mild pain or fever Last Admin: 02/10/20 02:57 Dose: 650 mg Documented by: Benzocaine/Menthol (Dermoplast Pain Relief [place]) 0 gm TOP ASDIRECTED PRN PRN Reason: Perineal Comfort Measure Docusate Sodium (Colace) 100 mg PO BID PRN PRN Reason: Constipation Last Admin: 02/08/20 21:11 Dose: 100 mg Documented by: Ibuprofen (Motrin) 600 mg PO Q4H PRN PRN Reason: Mild pain or fever Last Admin: 02/10/20 02:57 Dose: 600 mg Documented by: Ekaterina Umaña (Adelso) 1 pad TOP ASDIRECTED PRN PRN Reason: Perineal Comfort Measure Last Admin: 02/08/20 21:11 Dose: 1 can Documented by: Discontinued Medications Bupivacaine HCl (Sensorcaine-Mpf 0.25%) 10 ml .ROUTE .STK-MED ONE Stop: 02/08/20 00:01 Diphenhydramine HCl (Benadryl) 25 mg IVPUSH Q6H PRN PRN Reason: pruritis Ephedrine Sulfate (Ephedrine Sulfate) 5 mg IVPUSH ASDIRECTED PRN PRN Reason: Hypotension Fentanyl (Sublimaze) 100 mcg EPIDUR Q3H PRN PRN Reason: Pain Last Admin: 02/08/20 13:16 Dose: 100 mcg Documented by: Fentanyl/Bupivacaine HCl (Fentanyl/Bupivacaine/Ns 2 Mcg-0.125% 100 Ml) 100 ml EPIDUR ASDIRECTED PRN PRN Reason: Pain Last Admin: 02/08/20 13:16 Dose: 100 ml Documented by: Lactated Ringer's (Ringers, Lactated) 1,000 mls @ 100 mls/hr IV ASDIRECTED CHANCE Last Admin: 02/08/20 15:10 Dose: 100 mls/hr Documented by: Oxytocin/Lactated Ringer's (Pitocin In Lr 10 Units/1,000 Ml) 10 unit in 1,000 mls @ 500 mls/hr IV .CONTINUOUS CHANCE Oxytocin/Lactated Ringer's (Pitocin In Lr 20 Units/1,000 Ml) 20 unit in 1,000 mls @ 100 mls/hr IV .CONTINUOUS CHANCE Oxytocin/Lactated Ringer's (Pitocin In Lr 10 Units/1,000 Ml) 10 unit in 1,000 mls @ 12 mls/hr IV TITRATE CHANCE; Protocol Last Titration: 02/08/20 17:57 Dose: 1 munits/min, 6 mls/hr Documented by: Lidocaine HCl (Xylocaine 1%) 50 ml INJECT ONETIME ONE Stop: 02/08/20 11:21 Last Admin: 02/09/20 00:14 Dose: Not Given Documented by: Nalbuphine HCl (Nubain) 10 mg IVPUSH Q2H PRN PRN Reason: Pain Sodium Chloride (Saline Flush) 10 ml FLUSH ASDIRECTED PRN PRN Reason: Keep Vein Open
[2020-02-10 14:59] VITALS: BP 113/67; PULSE 92
== END 2020-02-10 14:47 | disposition home or self-care (01) | DRG 807 ==
LOC: JD.OBCHECK 09:57 → JD.OB 09:58 → JD.OBCHECK 11:19 → JD.OB 11:20 → OBSVTOIN 18:15 → JD.OB 18:16
PROVIDERS: ADMIT Obstetrics & Gynecology; ATTEND Obstetrics & Gynecology
PROC: 10E0XZZ Delivery of Products of Conception, External Approach (ICD-10-PCS; principal; 2020-02-08)
PROC: 10907ZC Drainage of Amniotic Fluid, Therapeutic from Products of Conception, Via Natural or Artificial Opening (ICD-10-PCS; 2020-02-08)
PROC: 3E0R3BZ Introduction of Anesthetic Agent into Spinal Canal, Percutaneous Approach (ICD-10-PCS; 2020-02-08)
DX: O69.81X0 Labor and delivery complicated by cord around neck, without compression, not applicable or unspecified (principal); Z37.0 Single live birth; Z3A.37 37 weeks gestation of pregnancy; Z20.828 Contact with and (suspected) exposure to other viral communicable diseases
CPT/HCPCS: 01967; 36415; 51702; 59025; 59409; 85025; 86592; 86850; 86900; 86901; A9270-GY; J2590; J3010; J3490; J7120; U0002

== ENCOUNTER 2020-10-27 07:26 | Day surgery (SDC) | payer MEDICAID ==
[~2020-10-27 07:26] MED LIST changes: -Bupivacaine 0.25% 10 ML SDV ONE; +Dexamethasone 4 MG/ML 5 ML MDV ONE; +Lactated Ringers 1,000 ML IV SCH; +Lactated Ringers 1,000 ML ONE; +Lidocaine 1% 4 ML ONE; +Lidocaine 1% with EPINEPHrine 1:100,000 10 ML MDV ONE; +Lidocaine 1%/Sod Bicarbonate in NS 8.4% 1 ML Syringe IDERM PRN; +Midazolam 1 MG/ML 2 ML SDV ONE; +Ondansetron 4 MG/2 ML SDV ONE; +Propofol 200 MG/20 ML SDV ONE; +Rocuronium 50 MG/5 ML Vial ONE; +Sodium Chloride 0.9% 10 ML Syringe FLUSH PRN; +Sodium Chloride 0.9% 50 ML SDV ONE; +ceFAZolin 1 GM Vial ONE; +fentaNYL 250 MCG/5 ML SDV ONE
[2020-10-27] MEDS ORDERED: Scopolamine 1.5 MG Transdermal Patch TOP ONE (07:36)
--- NOTE | 2020-10-27 07:45 | PCM.PREANE ---
Preanesthetic Assessment - Procedure Proposed Procedure: Total Vaginal Hysterectomy - Anesthesia/Transfusion/Family Hx Anesthesia History: Prior Anesthesia Without Reaction Family History of Anesthesia Reaction: No Transfusion History: No Prior Transfusion(s) - Review of Systems General: No Symptoms Pulmonary: No Symptoms Cardiovascular: No Symptoms Gastrointestinal: No Symptoms Neurological: No Symptoms Other: Reports: None (Motion Sickness) - Physical Assessment NPO Status Date: 10/26/20 NPO Status Time: 18:00 Weight: 75 kg ASA Class: 1 Mental Status: Alert & Oriented x3 Airway Class: Mallampati = 1 Dentition: Reports: Normal Dentition Thyro-Mental Finger Breadths: 3 Mouth Opening Finger Breadths: 3 ROM/Head Extension: Full Lungs: Clear to Auscultation, Normal Respiratory Effort Cardiovascular: Regular Rate, Regular Rhythm - Lab Values: Laboratory Last Values Urine Color Yellow (Yellow) 10/27/20 07:20 Urine Appearance Clear (Clear) 10/27/20 07:20 Urine pH 6.0 (5.0-8.0) 10/27/20 07:20 Ur Specific [place] 1.025 (1.005-1.030) 10/27/20 07:20 Urine Protein Negative (Negative) 10/27/20 07:20 Urine Glucose (UA) Negative (Negative) 10/27/20 07:20 Urine Ketones Negative (Negative) 10/27/20 07:20 Urine Occult Blood Negative (Negative) 10/27/20 07:20 Urine Nitrite Negative (Negative) 10/27/20 07:20 Urine Bilirubin Negative (Negative) 10/27/20 07:20 Urine Urobilinogen 0.2 (0.2-1.0) 10/27/20 07:20 Ur Leukocyte Esterase Negative (Negative) 10/27/20 07:20 Urine HCG, Qual Negative (NEGATIVE) 10/27/20 07:20 - Allergies Allergies/Adverse Reactions: Allergies Allergy/AdvReac Type Severity Reaction Status Date / Time latex Allergy Burning Verified 10/26/20 09:33 peanut AdvReac Stomach Verified 10/26/20 09:33 Ache - Anesthesia Plan Pre-Op Medication Ordered: Anxiolytic, Other (Scopalamine Patch) - Acknowledgements Anesthesia Type Planned: General Anesthesia Pt an Appropriate Candidate for the Planned Anesthesia: Yes Alternatives and Risks of Anesthesia Discussed w Pt/Guardian: Yes Pt/Guardian Understands and Agrees with Anesthesia Plan: Yes PreAnesthesia Questionnaire - Past Health History Medical/Surgical History: Denies Medical/Surgical History HEENT History: Reports: None Cardiovascular History: Reports: None Respiratory History: Reports: None Gastrointestinal History: Reports: GERD, 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) Other Gastrointestinal History: abdominal pain Genitourinary History: Reports: 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) Other Genitourinary History: LICHA I, HGSIL, vaginal discharge CARDIOLOGY COORDINATOR History: Reports: , 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) Other OB/BYN History: 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 Musculoskeletal History: Reports: 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) Other Musculoskeletal History: 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 Neurological History: Reports: None Psychiatric History: Reports: None Endocrine/Metabolic History: Reports: None Hematologic History: Reports: None Immunologic History: Reports: None Oncologic (Cancer) History: Reports: None - Infectious Disease History Infectious Disease History: Reports: None - Past Surgical History Head Surgeries/Procedures: Reports: None HEENT Surgical History: Reports: Oral Surgery, 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) Cardiovascular Surgical History: Reports: None Respiratory Surgical History: Reports: None GI Surgical History: Reports: None Endocrine Surgical History: Reports: None Neurological Surgical History: Reports: None Oncologic Surgical History: Reports: None Dermatological Surgical History: Reports: 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) - SUBSTANCE USE Tobacco Use Status *Q: Never Tobacco User Recreational Drug Use History: No - HOME MEDS Home Medications: Home Meds . [No Known Home Meds] 10/26/20 [History] - CURRENT (IN HOUSE) MEDS Current Meds: Current Medications Lactated Ringer's (Ringers, Lactated) 1,000 mls @ 125 mls/hr IV ASDIRECTED CHANCE Stop: 10/27/20 23:00 Lidocaine/Sodium Bicarbonate (Lidocaine 1%/Sod Bicarbonate In Ns 8.4% 1 Ml Syringe) 0.25 ml IDERM ONETIME PRN PRN Reason: Prior to IV Start Stop: 10/27/20 23:00 Sodium Chloride (Sodium Chloride 0.9% 10 Ml Syringe) 10 ml FLUSH ASDIRECTED PRN PRN Reason: Keep Vein Open Stop: 10/27/20 23:00 Discontinued Medications Cefazolin Sodium (Cefazolin 1 Gm Vial) Confirm Administered Dose 2 gm .ROUTE .STK-MED ONE Stop: 10/27/20 07:17 Dexamethasone (Dexamethasone 4 Mg/Ml 5 Ml Mdv) Confirm Administered Dose 20 mg .ROUTE .STK-MED ONE Stop: 10/27/20 07:22 Fentanyl (Fentanyl 250 Mcg/5 Ml Sdv) Confirm Administered Dose 250 mcg .ROUTE .STK-MED ONE Stop: 10/27/20 07:21 Lidocaine HCl (Xylocaine-Mpf 1%) Confirm Administered Dose 4 mls @ as directed .ROUTE .STK-MED ONE Stop: 10/27/20 07:17 Lactated Ringer's (Ringers, Lactated) Confirm Administered Dose 1,000 mls @ as directed .ROUTE .STK-MED ONE Stop: 10/27/20 07:17 Lidocaine/Epinephrine (Lidocaine 1% With Epinephrine 1:100,000 10 Ml Mdv) Confirm Administered Dose 10 ml .ROUTE .STK-MED ONE Stop: 10/27/20 07:17 Midazolam HCl (Midazolam 1 Mg/Ml 2 Ml Sdv) Confirm Administered Dose 2 mg .ROUTE .STK-MED ONE Stop: 10/27/20 07:19 Ondansetron HCl (Ondansetron 4 Mg/2 Ml Sdv) Confirm Administered Dose 4 mg .ROUTE .STK-MED ONE Stop: 10/27/20 07:17 Propofol (Propofol 200 Mg/20 Ml Sdv) Confirm Administered Dose 400 mg .ROUTE . STK-MED ONE Stop: 10/27/20 07:17 Propofol (Propofol 200 Mg/20 Ml Sdv) Confirm Administered Dose 200 mg .ROUTE .STK-MED ONE Stop: 10/27/20 07:25 Rocuronium [place] (Rocuronium 50 Mg/5 Ml Vial) Confirm Administered Dose 50 mg .ROUTE .STK-MED ONE Stop: 10/27/20 07:17 Scopolamine (Scopolamine 1.5 Mg Transdermal Patch) 1.5 mg TOP ONETIME ONE Stop: 10/27/20 07:37 Sodium Chloride (Sodium Chloride 0.9% 50 Ml Sdv) Confirm Administered Dose 50 ml .ROUTE .STK-MED ONE Stop: 10/27/20 07:17
[2020-10-27] MEDS ORDERED: Ketorolac 15 MG/ML SDV ONE (08:33)
[2020-10-27] MEDS ORDERED: Ondansetron 4 MG/2 ML SDV IVPUSH PRN (08:37)
[2020-10-27] MEDS ORDERED: HYDROmorphone 0.5 MG/0.5 ML Syringe IVPUSH PRN (08:37)
[2020-10-27] MEDS ORDERED: fentaNYL 100 MCG/2 ML SDV IVPUSH PRN (08:37)
--- NOTE | 2020-10-27 09:23 | PCM.OPNOTE ---
- General Post-Op/Procedure Note Date of Surgery/Procedure: 10/27/20 Operative Procedure(s): Transvaginal hysterectomy with bilateral salpingectomy Findings: Grossly normal-appearing cervix, uterus and bilateral fallopian tubes. Grossly normal-appearing bilateral ovaries. Normal-appearing visualized portions of the intestines. Pre Op Diagnosis: Abnormal uterine bleeding, menorrhagia with irregular cycle and LICHA-1 Post-Op Diagnosis: Same Anesthesia Technique: General ET Tube Primary Surgeon: Geoff Slaughter Anesthesia Provider: Deisi Hwoard Medical Reception: Demar Sen Reason Medical Reception Was Necessary: Patient safety and reduction of morbidity and mortality Role of Medical Reception: Retraction for visualization Pathology: Cervix, uterus and bilateral fallopian tubes Fluid Replacement, Intraop: 1,300 Output, Urine Amount: 0 (Voided prior to procedure) EBL in mLs: 40 Complications: None Condition: Good Free Text/Narrative:: Length of procedure: 41 minutes Procedure in detail: The patient was seen in the preoperative holding area and risks, benefits, indications, and alternatives of the procedure were reviewed with the patient and she desired to proceed with a trans vaginal hysterectomy and bilateral salpingectomy. Consents were signed. The patient was given general anesthesia with an endotracheal tube that was placed without difficulty. The patient was placed in dorsal lithotomy position using yellowfin stirrups. She was prepped and draped in normal sterile fashion. A weighted speculum was placed into the vagina and the anterior lip of the cervix was grasped with the single-tooth tenaculum. A double-tooth tenaculum was used to grasp the entirety of the cervix the single-tooth tenaculum was removed. The cervix was injected circumferentially with 0.25% lidocaine with epinephrine. The cervix was circumferentially incised with a scalpel. The bladder was dissected off the pubovesical cervical fascia anteriorly with [place] scissors. The posterior cul-de-sac was entered sharply without difficulty using [place] scissors. An Enseal vessel sealing device was placed over the uterosacral ligaments on the patient's left side. These were cauterized and ligated with the Enseal vessel sealing device. This was repeated on the patient's right side. Hemostasis was assured. The cardinal ligaments were then clamped on both sides with Enseal vessel sealing device, cauterized and ligated with the device. The anterior cul-de-sac was then able to be entered using sharp dissection with [place] scissors. The uterine arteries and broad ligament were then serially clamped with Enseal vessel sealing device, cauterized and ligated with the device on both sides. The cornua were clamped bilaterally with Enseal vessel sealing device, cauterized and ligated, and the uterus delivered. The left fallopian tube was then visualized and grasped using a Sugar clamp and excised using Enseal vessel sealing device. This was repeated on the right side with grasping of the fallopian tube with a Sugar clamp and excised using Enseal vessel sealing device. The posterior vaginal cuff was closed with running locked sutures of 0-Monocryl. There was some bleeding noted at this time and inspection was performed to visualize the source of the bleeding and it was felt to be coming from the anterior and posterior vaginal cuff. The vaginal cuff was closed with running locked stitches in a horizontal fashion with 0-Monocryl. The bleeding that had been previously noted had stopped when approximately two thirds of the cuff had been closed. Hemostasis was assured after the vaginal cuff was closed. All instruments were removed from the vagina. The patient was awoken and taken to the PACU for recovery in stable condition. Sponge, lap, needle, and instrument counts were correct x 2. Geoff Slaughter MD 9:22 AM 10/27/2020
--- NOTE | 2020-10-27 09:25 | PCM.POSTAN ---
POST ANESTHESIA ASSESSMENT - MENTAL STATUS Mental Status: Oriented, Other (Drowsy) - VITAL SIGNS Vital Signs: Last Vital Signs Temp 36.4 C 10/27/20 09:16 Pulse 72 10/27/20 09:16 Resp 10 L 10/27/20 09:16 BP 109/72 10/27/20 09:16 Pulse Ox 100 10/27/20 09:16 - RESPIRATORY Respiratory Status: Respiratory Rate WNL, Airway Patent, O2 Saturation Stable, Supplemental Oxygen - CARDIOVASCULAR CV Status: Pulse Rate WNL, Blood Pressure Stable - GASTROINTESTINAL GI Status: No Symptoms - PAIN Pain Score: 0 - POST OP HYDRATION Hydration Status: Adequate & Stable
[2020-10-27] MEDS ORDERED: oxyCODONE 5 MG Tab PO ONE (09:58)
--- NOTE | 2020-10-27 11:13 | PCM48HPAN ---
Post Anesthesia Note - EVALUATION WITHIN 48HRS OF ANESTHETIC Vital Signs in Normal Range: Yes Patient Participated in Evaluation: Yes Respiratory Function Stable: Yes Airway Patent: Yes Cardiovascular Function Stable: Yes Hydration Status Stable: Yes Pain Control Satisfactory: Yes Nausea and Vomiting Control Satisfactory: Yes Mental Status Recovered: Yes Vital Signs: Last Vital Signs Temp 36.4 C 10/27/20 10:35 Pulse 95 10/27/20 10:35 Resp 16 10/27/20 10:35 BP 101/70 10/27/20 10:35 Pulse Ox 96 10/27/20 10:35
[2020-10-27 11:56] VITALS: BP 111/59; PULSE 66
== END 2020-10-27 11:30 | disposition home or self-care (01) ==
LOC: JD.SDS 07:26
PROVIDERS: ATTEND Obstetrics & Gynecology
DX: N72 Inflammatory disease of cervix uteri (principal); N87.0 Mild cervical dysplasia; N73.6 Female pelvic peritoneal adhesions (postinfective); N93.9 Abnormal uterine and vaginal bleeding, unspecified; N92.0 Excessive and frequent menstruation with regular cycle; Z91.018 Allergy to other foods; Z91.010 Allergy to peanuts; Z91.040 Latex allergy status; Z91.09 Other allergy status, other than to drugs and biological substances; Z98.890 Other specified postprocedural states
CPT/HCPCS: 36415; 58262; 81003; 81025; 86850; 86900; 86901; A9270; J0690; J1100; J1885; J2250; J2405; J2704; J2710; J3010; J7120; 00944

== ENCOUNTER 2023-09-16 01:16 | Emergency (ER) | payer BC, MEDICAID ==
[2023-09-16 01:29] VITALS: PULSE 95
[2023-09-16] MEDS ORDERED: Naloxone 0.4 MG/ML SDV IVPUSH PRN (02:30)
[2023-09-16] MEDS: fentaNYL 100 MCG/2 ML SDV IVPUSH ONE (02:54)
[2023-09-16] MEDS: Sodium Chloride 0.9% 10 ML Syringe FLUSH PRN (02:55)
[2023-09-16 04:23] VITALS: BP 98/62
[2023-09-16] MEDS: Propofol 200 MG/20 ML SDV IVPUSH ONE (04:23)
== END 2023-09-16 04:05 | disposition home or self-care (01) ==
LOC: JD.ED 01:16
DX: S62.336A Displaced fracture of neck of fifth metacarpal bone, right hand, initial encounter for closed fracture (principal); Z87.891 Personal history of nicotine dependence; Z91.040 Latex allergy status; Z91.010 Allergy to peanuts; W22.01XA Walked into wall, initial encounter
CPT/HCPCS: 26605; 73120; 73130; 99283; J3010; J3490

== ENCOUNTER 2025-06-22 17:22 | Emergency (ER) | payer BC ==
[2025-06-22] MEDS: Ondansetron 4 MG/2 ML SDV IVPUSH ONE (18:57)
[2025-06-22] MEDS: Lactated Ringers 1,000 ML IV SCH (18:57)
[2025-06-22 19:55] LABS: BASOPHILS ABSOLUTE AUTO 0.1 K/mm3 (0.0-0.2); BASOPHILS PERCENT AUTO 1.0 % (0.0-1.0); EOSINOPHILS ABSOLUTE AUTO 0.1 K/mm3 (0.0-0.4); EOSINOPHILS PERCENT AUTO 2.1 % (0.0-6.0); IMMATURE GRAN ABSOLUTE AUTO 0.00 K/mm3 (0.00-0.05); IMMATURE GRAN PERCENT AUTO 0.0 % (0.0-0.4); LYMPHOCYTES ABSOLUTE AUTO 1.5 K/mm3 (1.0-4.8); LYMPHOCYTES PERCENT AUTO 29.6 % (24.0-44.0); MEAN PLATELET VOLUME 12.0 fl (9.4-12.3); MONOCYTES ABSOLUTE AUTO 0.4 K/mm3 (0.0-0.8); MONOCYTES PERCENT AUTO 6.8 % (0.0-8.0); NEUTROPHILS ABSOLUTE AUTO 3.1 K/mm3 (1.8-7.7); NEUTROPHILS PERCENT AUTO 60.5 % (41.0-71.0); NRBC ABSOLUTE 0.00 (0.00-0.02); NRBC PERCENT 0.0 % (0.0-0.2); PLATELET COUNT,PLT 147 K/mm3 (150-400); RED BLOOD CELL COUNT 3.87 M/mm3 (4.10-5.30); WHITE BLOOD CELL COUNT,WBC 5.13 K/mm3 (3.9-11.3)
[2025-06-22 20:08] LABS: A/G RATIO 1.3 (1-2); ALANINE AMINOTRANSFERASE,ALT 20 U/L (14-59); ASPARTATE AMNIOTRANSFERASE,AST 13 U/L (15-37); BILIRUBIN TOTAL 0.9 mg/dL (0.2-1.0); BLOOD UREA NITROGEN,BUN 15 mg/dL (7-18); CARBON DIOXIDE,CO2 29 mEq/L (21-32); CHLORIDE,CL 105 mEq/L (98-107); CREATININE 0.9 mg/dL (0.55-1.02); EST CRCL DRUG DOSING (CG) 77.95 mL/min; ESTIMATED GFR 87 mL/min (>60); GAMMA GLUTAMYL TRANSFERASE,GGT 24 U/L (5-55); GLUCOSE RANDOM 81 mg/dL (70-99); POTASSIUM,K 3.7 mEq/L (3.5-5.1); PROTEIN TOTAL,TP 6.6 g/dl (6.4-8.2); SODIUM,NA 140 mEq/L (136-145)
[2025-06-22] MEDS: Magnesium Citrate Solution 296 ML Bottle PO ONE (21:52)
[2025-06-22 22:18] VITALS: BP 96/65; PULSE 52
== END 2025-06-22 22:14 | disposition home or self-care (01) ==
LOC: JD.ED 17:22
DX: R10.11 Right upper quadrant pain (principal); Z91.010 Allergy to peanuts; Z91.040 Latex allergy status
CPT/HCPCS: 36415; 74018; 76705; 80053; 82977; 83690; 85025; 86140; 96361; 96374; 99284; A9270; J2405; J7120

== ENCOUNTER 2025-06-23 11:57 | Emergency (ER) | payer BC ==
[2025-06-23 12:55] VITALS: BP 112/69; PULSE 74
[2025-06-23] MEDS ORDERED: Sodium Chloride 0.9% 10 ML Syringe FLUSH PRN (13:10)
[2025-06-23 13:42] LABS: BASOPHILS ABSOLUTE AUTO 0.0 K/mm3 (0.0-0.2); BASOPHILS PERCENT AUTO 0.6 % (0.0-1.0); EOSINOPHILS ABSOLUTE AUTO 0.0 K/mm3 (0.0-0.4); EOSINOPHILS PERCENT AUTO 0.0 % (0.0-6.0); IMMATURE GRAN ABSOLUTE AUTO 0.03 K/mm3 (0.00-0.05); IMMATURE GRAN PERCENT AUTO 0.5 % (0.0-0.4); LYMPHOCYTES ABSOLUTE AUTO 0.6 K/mm3 (1.0-4.8); LYMPHOCYTES PERCENT AUTO 9.4 % (24.0-44.0); MEAN PLATELET VOLUME 12.0 fl (9.4-12.3); MONOCYTES ABSOLUTE AUTO 0.3 K/mm3 (0.0-0.8); MONOCYTES PERCENT AUTO 3.8 % (0.0-8.0); NEUTROPHILS ABSOLUTE AUTO 5.7 K/mm3 (1.8-7.7); NEUTROPHILS PERCENT AUTO 85.7 % (41.0-71.0); NRBC ABSOLUTE 0.00 (0.00-0.02); NRBC PERCENT 0.0 % (0.0-0.2); PLATELET COUNT,PLT 146 K/mm3 (150-400); RED BLOOD CELL COUNT 3.94 M/mm3 (4.10-5.30); WHITE BLOOD CELL COUNT,WBC 6.60 K/mm3 (3.9-11.3)
[2025-06-23 14:15] LABS: A/G RATIO 1.4 (1-2); ALANINE AMINOTRANSFERASE,ALT 18.0 U/L (14-59); ASPARTATE AMNIOTRANSFERASE,AST 13.0 U/L (15-37); BILIRUBIN TOTAL 1.7 mg/dL (0.2-1.0); BLOOD UREA NITROGEN,BUN 18.0 mg/dL (7-18); CARBON DIOXIDE,CO2 25.0 mEq/L (21-32); CHLORIDE,CL 104.0 mEq/L (98-107); CREATININE 0.9 mg/dL (0.55-1.02); EST CRCL DRUG DOSING (CG) 73.9 mL/min; ESTIMATED GFR 87.0 mL/min (>60); GLUCOSE RANDOM 77.0 mg/dL (70-99); POTASSIUM,K 4.1 mEq/L (3.5-5.1); PROTEIN TOTAL,TP 6.7 g/dl (6.4-8.2); SODIUM,NA 140.0 mEq/L (136-145)
[2025-06-23 14:25] LABS: LACTIC ACID 0.7 mmol/L (0.4-2.0)
[2025-06-23] MEDS: Sodium Chloride 0.9% 10 ML Syringe FLUSH PRN (14:44)
[2025-06-23] MEDS: Iopamidol 612 MG/ML 100 ML Bottle IVPUSH ONE (14:44)
== END 2025-06-24 07:00 | disposition home or self-care (01) ==
LOC: JD.ED 11:57
DX: K85.90 Acute pancreatitis without necrosis or infection, unspecified (principal); E80.6 Other disorders of bilirubin metabolism; Z91.010 Allergy to peanuts; Z91.040 Latex allergy status; Z79.899 Other long term (current) drug therapy
CPT/HCPCS: 36415; 74177; 76705; 80053; 83605; 83690; 84703; 85025; 85652; 86140; 87328; 87329; 87507; 99284; J7030; Q9967; 87177; 87209